=== PATIENT | female | born 1970 | race Caucasian/White ===

== ENCOUNTER 2020-06-27 19:59 | Emergency (ER) | payer SELFPAY ==
[2020-06-27 20:06] VITALS: BP 134/82; PULSE 84; RESP 18; TEMP 36.7; O2SAT 98; BMI 25.4
[2020-06-27 20:29] VITALS: BP 118/80; PULSE 89; RESP 16; O2SAT 97
--- NOTE | 2020-06-27 20:33 | W.ED.FEMALGU ---
HPI - Female Genitourinary General: Chief complaint: Vaginal Bleeding Stated complaint: vaginal bleeding Time Seen by Provider: 06/27/20 20:18 History of Present Illness: HPI Narrative: Patient is a 50-year-old female comes to the ED with vaginal bleeding. Patient has a past medical history of anemia due to iron deficiency. Patient says she started having heavy vaginal bleeding approximately 3 months ago. 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 She has had a Pap smear recently which was normal and also had an ultrasound done approximately 3 weeks ago which also was read as normal. Patient says she has been having normal consistent periods up until 3 months ago when she started having heavier. She said she usually has bleeding for almost 3 weeks and then has a week of no bleeding. She says after the week of no bleeding she starts having spotting and begins another round of heavy bleeding again for approximately 3 weeks. She says the cycle has been going on for the last 3 months. Today patient is having some nausea and pelvic pain and cramping. She rates the pain about a 10 out of 10. Past 4 days her vaginal bleeding has gotten heavier. She describes passing some clots as well. Associated symptoms: Reports nausea; Deny abdominal pain or headache(s) Date of Last Menstrual Period: 06/27/20 Review of Systems Const: Denies: fever(s), chills or fatigue Eyes: Denies: change in vision or eye discomfort ENMT: Denies: throat pain, odynophagia, nasal discharge or nasal congestion Card: Denies: chest pain, palpitations, edema, swelling of feet/ankles, dyspnea on exertion or orthopnea Resp: Denies: dyspnea, productive cough or non-productive cough GI: Reports: nausea; Denies: abdominal pain, vomiting, diarrhea, constipation or hematochezia : Reports: vaginal bleeding, irregular period, change in menstrual flow and pelvic pain (cramping); Denies: flank pain, dysuria or hematuria Musc: Denies: neck pain, back pain or extremity swelling Skin/Breast: Denies: rash or new lesions Neuro: Denies: headache(s), numbness in extremities or weakness in extremities [facility] ED Female Reproductive History: Date of last menstrual period: 06/27/20 Physical Exam Const: COMMON NORMALS: no acute distress, patient oriented x3, healthy appearing and alert GENERAL APPEARANCE: cooperative and comfortable HENMT: COMMON NORMALS: normocephalic HEAD & SCALP: normocephalic MOUTH: Normal oral and palatal mucosa present THROAT: posterior oropharynx normal and uvula midline Eye: COMMON NORMALS: Equal, round and reactive pupils present PUPIL: Yes Equal, round and reactive pupils present Neck/C-Spine: COMMON NORMALS: supple GENERAL: Yes normal visual inspection Resp: COMMON NORMALS: normal respiratory effort, No retractions, No use of accessory muscles and clear to auscultation bilaterally AUSCULTATION: clear to auscultation bilaterally Cardio: COMMON NORMALS: regular rate, regular rhythm, S1 normal heart sound present, S2 normal heart sound present, No gallops present (Cardio), No clicks present (Cardio), No murmurs present (Cardio) and Peripheral pulses 2+ throughout RATE: regular rate RHYTHM: regular rhythm HEART SOUNDS: S1 normal heart sound present and S2 normal heart sound present PERIPHERAL PULSES: Peripheral pulses 2+ throughout GI: COMMON NORMALS: Normal to inspection, nondistended, normoactive bowel sounds present, Soft to palpation and no masses PALPATION: Yes Soft to palpation and Yes Tenderness to palpation present (GI) Details: other (Mild lower pelvic pain upon palpation.) : COMMON NORMALS: Yes no CVA tenderness BLADDER/KIDNEY EXAM: Yes no CVA tenderness Back/Pelvis: COMMON NORMALS: no CVA tenderness Extremity: COMMON NORMALS: normal to inspection and no pedal edema Neuro: COMMON NORMALS: patient oriented x3 and moves all extremities SENSORIUM/ORIENTATION: Yes alert Skin: COMMON NORMALS: no rashes or lesions noted GENERAL SKIN EXAM: no rashes or lesions noted and dry skin Course Reevaluation(s): Reevaluation #1: After IV fluids, Zofran and Dilaudid for pain patient pain greatly improved. Patient is ready to be discharged. Vital Signs: Vital signs: Vital Signs Temperature 98.1 F 06/27/20 20:06 Pulse Rate 70 06/27/20 22:00 Respiratory Rate 16 06/27/20 22:36 Blood Pressure 101/66 06/27/20 22:00 Pulse Oximetry 97 06/27/20 22:36 MDM - Female MDM Narrative: Medical decision making narrative: Patient is a 50-year-old female who comes to the ED with vaginal bleeding and lower abdomen/pelvic pain and cramping. Symptoms started approximately 3 months ago when she is seen her research quality assurance analyst doctor about the vaginal bleeding and a Pap smear has been performed that was normal and an ultrasound was performed approximately a month ago with no acute findings as well. Physical exam?showed some lower abdominal pelvic pain bilaterally. Patient appears in no acute distress and does not appear ill. Hemoglobin 10.5, but patient has a history of anemia.. Rest of CBC, CMP were unremarkable. hCG negative. Ultrasound of the pelvis showed an open cervix, enlarged uterus and normal ovaries. Minimal free fluid seen in the pelvis. No significant endometrial thickening seen. Patient was given IV fluids Zofran and pain medications while here in the ED and her pain did improve. Patient has a follow-up appointment with her OB doctor in the next week. Patient was discharged and told to return to ED if symptoms worsen. Take Tylenol or ibuprofen for pain and drink plenty of fluids. Patient understood and agreed with plan. Lab Data: Attestation: I reviewed the patient's lab results. Labs: Lab Results 06/27/20 06/27/20 06/27/20 Range/Units 20:38 20:38 20:38 WBC 5.4 (4.0-10.0) 10^3/ uL RBC 3.56 L (4.1-5.3) 10^6/u L Hgb 10.5 L (11.5-15.3) g/dL Hct 32.9 L (37.0-47.0) % MCV 92.4 (81-99) fL MCH 29.5 (28.0-34.0) pg MCHC 31.9 (30.0-36.0) g/dL RDW 14.7 (12.1-15.1) % Plt Count 287 (130-400) 10^3/c mm MPV 10.1 (7.4-10.4) fL Neut % (Auto) 49.0 % Lymph % (Auto) 36.8 % Clare % (Auto) 10.8 % Eos % (Auto) 2.1 % Baso % (Auto) 0.9 % Neut # (Auto) 2.63 (1.8-7.7) 10^3/u L Lymph # (Auto) 2.0 (0.8-4.8) 10^3/u L Clare # (Auto) 0.6 (0.2-0.9) 10^3/u L Eos # (Auto) 0.1 (0.0-0.8) 10^3/u L Baso # (Auto) 0.1 (0.0-0.1) 10^3/u L Nucleated RBC % (a uto) 0 % Nucleated RBCs # 0.0 /100WBC Sodium 137 (136-145) mmol/L Potassium 4.2 (3.5-5.1) mmol/L Chloride 103 (98-107) mmol/L Carbon Dioxide 22 (22-29) mmol/L Anion Gap 16.2 (5-19) BUN 16 (6-20) mg/dL Creatinine 0.6 (0.5-0.9) mg/dL GFR Calculation 105.8 (90-130) mL/min Glucose 98 (65-115) mg/dL Calculated Osmolal ity 280 L (285-295) mOsm/k g Calcium 9.1 (8.5-10.5) mg/dL Total Bilirubin 0.2 (0.15-1.2) mg/dL AST 22 (0-32) U/L ALT 14 (0-33) U/L Alkaline Phosphata se 46 (35-105) IU/L Total Protein 6.9 (6.6-8.7) g/dL Albumin 4.3 (3.5-5.2) g/dL Globulin 2.6 (1.3-4.6) g/dL HCG, Qual Negative (Negative) Imaging Data: US OB: Attestation: I personally reviewed and interpreted this imaging study as follows: Radiologist's impression: Ultrasound of the pelvis was performed. Prelim report showed an enlarged uterus with no remarkable endometrial thickening. Cervix was open and not a lot of free fluid in the pelvis was identified. Ovaries are both normal bilaterally. Discharge Plan Discharge Patient Disposition: Home Clinical Impression: Vaginal bleeding, Uterine enlargement Condition: Stable Prescriptions: No Action Vitamin B-12 1,000 mcg Tablet Extended Release 1,000 mcg PO DAILY RF: 0 Vitamin C 1,000 mg Tablet 500 mg PO DAILY RF: 0 vitamin A 8,000 unit Capsule 8,000 unit PO DAILY RF: 0 Vitamin B-1 100 mg Tablet 50 mg PO DAILY RF: 0 Vitamin B-6 100 mg Tablet 50 mg PO BID RF: 0 vitamin B complex Tablet 1 tab PO DAILY RF: 0 Discharge Orders: Discharge Order (Routine); Ordered 06/27/20 Ordered By: Kulwant Slater Referrals: Liset Valdovinos FNP [Primary Care Provider] - Discharge Diet: Regular Discharge Activity: Increase activity as tolerated Patient Instructions: Dysfunctional Uterine Bleeding (ED) Activity Restrictions/Additional Instructions: Follow-up with research quality assurance analyst doctor within the next 7 days for reevaluation. Take ibuprofen or Tylenol for pain. Drink plenty of fluids and stay hydrated. Return to the ER or your medical provider if condition worsens. Please read and understand discharge instructions. If any questions, please ask. Ultrasound findings?uterine enlargement seen. No significant endometrial thickening noted. Cervix was open. Minimal free pelvic fluid. Ovaries were normal. 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
[2020-06-27 20:49] LABS: Basophils # 0.1 10^3/uL (0.0-0.1); Basophils % 0.9 %; Eosinophils # 0.1 10^3/uL (0.0-0.8); Eosinophils % 2.1 %; Hematocrit 32.9 % (37.0-47.0); Hemoglobin 10.5 g/dL (11.5-15.3); Lymphocytes % 36.8 %; Mean Corpuscular HGB Conc 31.9 g/dL (30.0-36.0); Mean Corpuscular Hemoglobin 29.5 pg (28.0-34.0); Mean Corpuscular Volume 92.4 fL (81-99); Mean Platelet Volume 10.1 fL (7.4-10.4); Monocytes # 0.6 10^3/uL (0.2-0.9); Monocytes % 10.8 %; Neutrophils # 2.63 10^3/uL (1.8-7.7); Nucleated Red Blood Cells % 0 %; Platelet Count 287 10^3/cmm (130-400); Red Blood Count 3.56 10^6/uL (4.1-5.3); Red Cell Distribution Width 14.7 % (12.1-15.1); White Blood Count 5.4 10^3/uL (4.0-10.0)
--- NOTE | 2020-06-27 20:53 | US_ITS ---
WS: [id number] EXAM: TRANSVAGINAL PELVIC SONOGRAM DATE OF EXAMINATION: 06/27/2020, 2124 hours COMPARISON: None. HISTORY: 50 years old with vaginal bleeding. FINDINGS: Uterus measures 9.52 cm in length, 5.2 cm in width, and 3.5 in depth. Endometrial complex is hard to determine. Estimated around 5 mm in thickness. There is debris presumably blood within the upper fund us with endometrial lumen in the fundus. The entire endometrial cavity estimated at 9 mm in cross-sec tional diameter. Left ovary measures 2.8 x 1.6 x 2.0 cm. Color-flow and spectral Doppler demonstrates flow within the left ovary. Right ovary measures 2.8 x 2.0 x 2.2 cm. Color-flow and spectral Doppler demonstrates flow within the right ovary. There is trace fluid within the lower uterine segment and upper inner cervical canal. US/US pelvic complete* [id number] OPINION: Fluid and echogenic material within uterine cavity presumably blood products. P resumably the patient is perimenopausal. Correlation with the patient's typical menses cycle recommended. If she has been amenorrheic for a while follow-up im aging will be required in 2-3 months. Normal appearance to both ovaries. No tori e fluid.
[2020-06-27 20:58] VITALS: RESP 16; O2SAT 96
[2020-06-27] MEDS: morphine 4 mg/mL SDV 1 mL IVP (20:58)
[2020-06-27] MEDS: sodium chloride 0.9% 1,000 ML 999 ML IV (20:58)
[2020-06-27] MEDS: ondansetron 2 mg/ML SDV 2 mL 4 MG IVP (20:58)
[2020-06-27 21:08] LABS: Alanine Aminotransferase 14 U/L (0-33); Albumin Level 4.3 g/dL (3.5-5.2); Alkaline Phosphatase 46 IU/L (35-105); Aspartate Amino Transferase 22 U/L (0-32); Blood Urea Nitrogen 16 mg/dL (6-20); Calcium 9.1 mg/dL (8.5-10.5); Carbon Dioxide 22 mmol/L (22-29); Chloride 103 mmol/L (98-107); Globulin 2.6 g/dL (1.3-4.6); Glomerular Filtration Rate 105.8 mL/min (90-130); Glucose 98 mg/dL (65-115); Osmolality Calculated 280 mOsm/kg (285-295); Sodium 137 mmol/L (136-145); Total Bilirubin 0.2 mg/dL (0.15-1.2); Total Protein 6.9 g/dL (6.6-8.7)
[2020-06-27 21:10] LABS: Anion Gap 16.2 (5-19); Potassium 4.2 mmol/L (3.5-5.1)
[2020-06-27 21:42] LABS: HCG, Serum Qual Negative (Negative)
[2020-06-27 22:00] VITALS: BP 101/66; PULSE 70; RESP 16; O2SAT 97
[2020-06-27 22:36] VITALS: RESP 16; O2SAT 97
[2020-06-27] MEDS: HYDROmorphone 1 mg/mL INJ 1 mL IVP (22:36)
== END 2020-06-27 23:04 | disposition home or self-care (01) ==
PROVIDERS: Emergency Medicine; Emergency Provider Physician Assistant; PCP Nurse Practitioner Family
DX: N93.9 Abnormal uterine and vaginal bleeding, unspecified (principal); N85.2 Hypertrophy of uterus
CPT/HCPCS: 12345; 36415; 76856; 80053; 84703; 85025; 96361; 96374; 96375; 99282; 99283; J1170; J2270; J2405; J7030

== ENCOUNTER → 2020-08-04 12:18 | Outpatient (BNVA) | payer MEDICAID, SELFPAY | PROVIDERS: PCP Nurse Practitioner Family; Visit Provider Obstetrics & Gynecology | DX: Z20.828 Contact with and (suspected) exposure to other viral communicable diseases (principal) | CPT/HCPCS: 87635 ==

== ENCOUNTER 2020-08-08 10:36 | Day surgery (SDC) | payer MEDICAID, SELFPAY ==
[2020-08-07 10:23] VITALS: BMI 30.1
[2020-08-08] MEDS: ketorolac 30 mg/mL INJ IVP (11:00)
[2020-08-08 11:05] LABS: OR HCG Qualitative Urine Negative (Negative)
[2020-08-08 11:12] LABS: Basophils # 0.1 10^3/uL (0.0-0.1); Basophils % 1.4 %; Eosinophils # 0.1 10^3/uL (0.0-0.8); Eosinophils % 1.6 %; Hematocrit 38.2 % (37.0-47.0); Hemoglobin 11.6 g/dL (11.5-15.3); Lymphocytes # 1.8 10^3/uL (0.8-4.8); Lymphocytes % 28.8 %; Mean Corpuscular HGB Conc 30.4 g/dL (30.0-36.0); Mean Platelet Volume 10.1 fL (7.4-10.4); Monocytes # 0.6 10^3/uL (0.2-0.9); Monocytes % 9.4 %; Neutrophils # 3.74 10^3/uL (1.8-7.7); Neutrophils % 58.6 %; Nucleated Red Blood Cells % 0 %; Platelet Count 418 10^3/cmm (130-400); Red Blood Count 4.29 10^6/uL (4.1-5.3); Red Cell Distribution Width 14.2 % (12.1-15.1); White Blood Count 6.4 10^3/uL (4.0-10.0)
[2020-08-08] MEDS: sodium chloride 0.9% 1,000 ML 30 ML IV (11:37)
--- NOTE | 2020-08-08 12:06 | ANES.PREANE2 ---
Pre-Anesthetic Assessment Pre-Anesthetic Assessment: Height/Weight: Height 1.65 m Weight 82.1 kg Preop Diagnosis: Menorrhagia, Dysmenorrhea, Anemia Proposed Procedure: Operation Date: 08/08/20 12:00 Proposed Procedures p Hysteroscopy w/ Ablation w/ Novasure 07267 N93.9(Not Applicable) - Taco Amaya MD Familial anesthetic complications: None Last intake: Intake Last Liquid Date 08/08/20 Last Liquid Time 03:00 Last Solid Date 08/07/20 Last Solid Time 17:00 Social: Social History: No alcohol and No tobacco Exam: Pre-Anes Outpt Exam: alert, oriented x 3, clear to auscultation bilaterally and regular rate & rhythm Airway: Cervical ROM: WNL MP: 2 Dentition: False Pulmonary: Pulmonary: Sleep apnea Anesthetic Plan: ASA status: 2 Anesthesia: MAC Risk of > 500 ml blood loss (7ml/kg in children): No PFSH Anesthesia PFSH: Medical History Anemia 05/01/2020: H&H 9.5/27.8, MCV 88.9 06/27/2020: H&H 10.5/32.9, MCV 92.4 Left breast lump Sleep apnea Surgical History H/O right knee surgery Meniscal tear History of ankle surgery Left ankle fracture Family History Father Cancer Prostate Sister Thyroid disorder Social History Smoking and tobacco status: never smoked Alcohol intake: current Alcohol intake frequency: holidays/special occasions only Other details last substance use: Denies drug use Female Reproductive History: Date of last menstrual period: 06/27/20 Data Anesthesia CBC & Chem 7: 08/08/20 11:00 Other Labs: Laboratory Results - last 48 hr 08/08/20 08/08/20 10:38 11:00 WBC 6.4 RBC 4.29 Hgb 11.6 Hct 38.2 MCV 89.0 MCH 27.0 L MCHC 30.4 RDW 14.2 Plt Count 418 H MPV 10.1 Neut % (Auto) 58.6 Lymph % (Auto) 28.8 [place]verse % (Auto) 9.4 Eos % (Auto) 1.6 Baso % (Auto) 1.4 Neut # (Auto) 3.74 Lymph # (Auto) 1.8 [place]verse # (Auto) 0.6 Eos # (Auto) 0.1 Baso # (Auto) 0.1 Nucleated RBC % (auto) 0 Nucleated RBCs # 0.0 Urine HCG, Qual Negative Cardiac Studies: No Data to Display
--- NOTE | 2020-08-08 14:11 | W.PM.OPSUD ---
Surgery/Procedure H&P Update DATE OF PROCEDURE: August 08, 2020 DATE H&P PERFORMED: 08/04/20 H&P UPDATE INFORMATION: I have reviewed H&P completed within last 30 days, I have examined patient prior to procedure, No changes to prior documentation and H&P is in [facility] EMR on date indicated PREOP DIAGNOSIS: Menorrhagia, Dysmenorrhea, Anemia PLANNED PROCEDURE: Operation Date: 08/08/20 12:00 Proposed Procedures p Hysteroscopy w/ Ablation w/ Novasure 12894 N93.9(Not Applicable) - Taco Amaya MD
--- NOTE | 2020-08-08 15:18 | P.OP_ITS ---
Operative Report Date of procedure: August 08, 2020 Pre-op Diagnosis: Menorrhagia, Dysmenorrhea, Anemia Post-op Diagnosis: Menorrhagia, Dysmenorrhea, Anemia, Endometrial polyp Procedure Done: Hysteroscopy with D&C and endometrial ablation with NovaSure, Paracervical block Specimens removed/disposition: Endometrial curettings with polyp Surgeon: Taco Amaya Lead Assistant Manager: None Anesthesia: MAC and Other (Paracervical block) Estimated blood loss (mL): 2 IV fluids (mL): 900 Complications: None Findings: First-degree uterine prolapse. Small endometrial polyp in the left cornual region. No submucosal masses noted. Brief History: Patient is a 50-year-old female 4, para 4 who initially presented to the office as a referral from Dr. Valdovinos due to abnormal uterine bleeding. She reported having problems with heavy bleeding for the last 4 months. Her bleeding started as regular cycles with it lasting up to 3 weeks at a time. It was start with 1 day of spotting with the rest the time being heavy. She reported changing a tampon and a pad several times per hour. She reported large clots with bad cramping present. She had been treated with high-dose estrogen at one point which did not slow the bleeding. She had then been treated with Depo-Provera as well. She was also found to be anemic and was on oral iron. Ultrasound had shown no abnormalities of the uterus. Due to the continued bleeding despite the Depo-Provera, patient is presenting for than surgical treatment in the form of an endometrial ablation. Procedure: The patient was taken to the operating room where IV sedation was started. She was prepped and draped in the usual sterile fashion in the dorsal supine position with legs in Leonard style stirrups. Sequential compression boots had been placed prior to starting the case. Patient had voided just before coming to the operating room. Exam under anesthesia was performed and the patient was noted to have first- degree uterine prolapse. A weighted speculum was placed in the vagina and the cervix was grasped with a single-tooth tenaculum. A paracervical block was performed with a total of 10 mL of 2% lidocaine with epinephrine used. The cervix was serially dilated until a operative hysteroscope could be passed. Crystalloid solution was used as a distention media. The endometrial cavity was inspected and appeared normal except for the presence of a small endometrial p olyp in the left cornual region. Hysteroscope was removed and sharp curettage performed. Moderate amount of tissue obtained. Using the NovaSure sound, endometrial cavity length was measured at 6 cm. The NovaSure device was inserted and device was deployed. The device was moved up and down and left and right until no further with adjustment occurred. Uterine width was measured at 4.4 cm. Settings were entered in the NovaSure machine and wattage was set at 145 [place]. Cavity integrity check was performed and integrity confirmed. Device was then activated. Total treatment time was 55 se conds. Device was removed. The tenaculum was removed and there was minimal bleeding from the tenaculum site. Patient tolerated the procedure well. Sponge and needle counts were correct. DRAINS: None POSTOPERATIVE STATUS: The patient was transferred to the recovery room in satisfactory condition DISPOSITION: Discharge to home when criteria was met. FOLLOWUP APPOINTMENT: Followup appointment had been scheduled on 08/21/2020 in my office. MEDICATIONS: Tramadol 50 mg, 1 to 2 tablets every 6 hours as needed for pain, #10, 0 refills Ibuprofen 800 mg, 1 tablet 3 times a day as needed for pain, #30, 0 refills Patient to resume usual home medications.
[2020-08-08 15:25] VITALS: BP 116/70; PULSE 82; RESP 18; TEMP 36.8; O2SAT 93
[2020-08-08 15:51] VITALS: BP 114/76; PULSE 87; RESP 18; TEMP 36.8; O2SAT 96
--- NOTE | 2020-08-08 15:52 | ANE.PACU2 ---
Inpatient post-anesthesia follow up: Airway intact: Yes Vital signs: Temperature 98.2 F Pulse Rate 82 Respiratory Rate 18 Blood Pressure 116/70 Pulse Oximetry 93 Oxygen Delivery Me thod Room Air Oxygen Flow Rate Fraction of Inspir ed Oxygen Hydration adequate: Yes Nausea and vomiting: No Pain level: 4 Mental status: Baseline
== END 2020-08-08 16:08 | disposition home or self-care (01) ==
PROVIDERS: PCP Nurse Practitioner Family; Visit Provider Obstetrics & Gynecology
PROC: 0U598ZZ Destruction of Uterus, Via Natural or Artificial Opening Endoscopic (ICD-10-PCS; CPT 58563; principal; 2020-08-08 12:00)
DX: N92.0 Excessive and frequent menstruation with regular cycle (principal); N94.6 Dysmenorrhea, unspecified; D64.9 Anemia, unspecified; N84.0 Polyp of corpus uteri
CPT/HCPCS: 58563; 12345; 81025; 84703; 85025; 88305; 96374; J1885; J2250; J2405; J2704; J3010; J7030

== ENCOUNTER 2021-02-07 10:56 | Emergency (ER) | payer SELFPAY ==
[2021-02-07] VITALS (7 sets, daily range): BP systolic 138–152; BP diastolic 87–100; PULSE 59–69; RESP 18–19; TEMP 36.5–36.6; O2SAT 97–100; BMI 31.6
--- NOTE | 2021-02-07 11:27 | XR_ITS ---
WS: [id number] PORTABLE CHEST HISTORY: chest wall pain, right sided COMPARISON: None available. Lungs are clear and well expanded. No pleural effusion or pneumothorax. Cardiac size: Normal. Mediastinum/Aorta: Normal mediastinum. No osseous abnormality seen. XR/XR chest 1V portable [id number] IMPRESSION: Unremarkable portable chest.
--- NOTE | 2021-02-07 11:27 | ECG_ITS ---
[facility] Test Date: 2021-02-07 Pat Name: Digna Prabhakar Department: Room: Gender: Female Grip Wrapper: : 1970 Requested By: Duncan Clemons Order Number: [id number] Jazzy MD: Eugenio Arechiga M.D. Measurements Intervals [place] Rate: 65 P: 31 CT: 170 QRS: 36 QRSD: 93 T: 40 QT: 407 QTc: 425 Interpretive Statements SINUS RHYTHM SEPTAL MYOCARDIAL INFARCTION , PROBABLY OLD [40+ ms Q WAVE IN V1/V2] No previous ECG available for comparison Electronically Signed On 02-07-2021 19:49:31 CDT by Eugenio Arechiga M.D. [email or web address]
--- NOTE | 2021-02-07 11:48 | W.ED.CHESTPA ---
HPI - Chest Pain General: Chief Complaint: Chest Pain Stated Complaint: Rt shoulder/Rt side of chest/Rt side of back pain Time Seen by Provider: 02/07/21 11:20 History of Present Illness: HPI narrative: The patient is a 50-year-old female who comes to the ER complaining of right-sided shoulder, chest and right back pain as well. She says this pain started 2 days ago while she was gardening as she has been doing a lot of raking dirt. She has taken medication at home with little improvement however each day her pain gets worse. It hurts with movement and she says it hurts to take deep breaths. She is very tender to the right chest and shoulder area. No previous history of coronary artery disease. Non-smoker. Onset (ago): day(s) (2) Timing of current episode: constant Onset: during exertion Pain location: right chest Pain radiation: back (Right back) and right shoulder Severity: moderate Quality: sharp Exacerbating factors: movement Context: trauma/injury Associated symptoms: Reports no associated symptoms; Deny abdominal pain, dyspnea or palpitations Review of Systems General: Reports: 10 or more systems reviewed and unremarkable except in HPI and below Const: Denies: fatigue Eyes: Denies: change in vision, blurry vision or eye redness ENMT: Denies: throat pain, swelling of lips/tongue, ear or mastoid pain or nasal congestion Card: Denies: chest pain (right chest wall pain, right shoulder pain), palpitations, irregular heart rhythm, edema, dyspnea on exertion or orthopnea Resp: Denies: dyspnea, productive cough or non-productive cough GI: Denies: abdominal pain, diarrhea or GI cramping : Denies: flank pain, difficulty voiding, urinary frequency or urinary urgency Musc: Denies: neck pain, back pain, extremity pain, joint pain, joint redness, limited range of motion or muscle weakness Skin/Breast: Denies: rash, pruritus, erythema, skin pain or skin tenderness Neuro: Denies: headache(s), numbness in extremities, weakness in extremities, sensory changes, difficulty walking, dizziness, confusion or Slurred speech present Psych: Denies: anxiety or depression Endo: Denies: polyuria All/Imm: Denies: urticaria, throat swelling or tongue swelling PFS ED PFSH: Medical History (Updated 03/31/21 @ 15:14 by Duncan Clemons MD) Anemia 05/01/2020: H&H 9.5/27.8, MCV 88.9 06/27/2020: H&H 10.5/32.9, MCV 92.4 Left breast lump Sleep apnea Surgical History (Updated 08/22/20 @ 15:38 by Taco Amaya MD) H/O right knee surgery Meniscal tear History of ankle surgery Left ankle fracture S/P endometrial ablation (08/08/20) Hysteroscopy, D&C with polypectomy, NovaSure endometrial ablation. Performed by Dr. Amaya at [facility] in [place], [place]. Family History Father Cancer Prostate Sister Thyroid disorder Social History (Updated 08/22/20 @ 15:39 by Taco Amaya MD) Smoking and tobacco status: never smoked Alcohol intake: current Alcohol intake frequency: holidays/special occasions only Other details last substance use: Denies drug use Female Reproductive History: Date of last menstrual period: 06/27/20 Physical Exam Narrative: EXAM NARRATIVE: Right shoulder pain and tenderness worse with movement. Right-sided chest wall pain and tenderness. Also similar pain and tenderness on her right scapular muscular region. Const: COMMON NORMALS: no acute distress, average body habitus, patient oriented x3, no limitations, healthy appearing, alert and well nourished GENERAL APPEARANCE: cooperative, comfortable, well kempt and well developed ORIENTATION/CONSCIOUSNESS: Yes awake, Yes oriented to person, Yes oriented to place and Yes oriented to time HENMT: COMMON NORMALS: normocephalic, external ears normal and Normal external nose present HEAD & SCALP: normal to inspection and normocephalic NOSE: Normal external nose present EXTERNAL EAR: Yes external ears normal MOUTH: Normal oral and palatal mucosa present THROAT: posterior oropharynx normal Eye: COMMON NORMALS: Equal, round and reactive pupils present and EOMs intact bilaterally GENERAL EYE: appearance normal, both eyes and all related structures PUPIL: Yes Equal, round and reactive pupils present Neck/C-Spine: COMMON NORMALS: full ROM, no lymphadenopathy, no meningeal signs and no JVD GENERAL: Yes normal visual inspection Lymph: LYMPHATIC: no lymphadenopathy noted Chest: COMMONS NORMALS: normal inspection of the chest and normal palpation of entire chest wall Resp: COMMON NORMALS: normal respiratory effort, No retractions, No use of accessory muscles, clear to auscultation bilaterally and percussion normal EFFORT & INSPECTION: Yes able to speak in complete sentences AUSCULTATION: clear to auscultation bilaterally PERCUSSION: percussion normal Cardio: COMMON NORMALS: no JVD, regular rate, regular rhythm, S1 normal heart sound present, S2 normal heart sound present and Peripheral pulses 2+ throughout RATE: regular rate RHYTHM: regular rhythm HEART SOUNDS: S1 normal heart sound present and S2 normal heart sound present PERIPHERAL PULSES: Peripheral pulses 2+ throughout GI: COMMON NORMALS: Normal to inspection, nondistended, normoactive bowel sounds present, Soft to palpation, non-tender and no masses INSPECTION: Yes normal to inspection PALPATION: Yes Soft to palpation : COMMON NORMALS: Yes no CVA tenderness BLADDER/KIDNEY EXAM: Yes no CVA tenderness Back/Pelvis: COMMON NORMALS: no CVA tenderness, thoracic and lumbar spine normal to inspection, no thoracic nor lumbar tenderness and thoraco-lumbar ROM normal Extremity: COMMON NORMALS: normal to inspection, full ROM, capillary refill normal, no joint enlargement and no pedal edema NARRATIVE EXTREMITY EXAM: Tenderness to right shoulder musculature reproducing her chief complaint GENERAL: Yes normal exam except as noted Neuro: COMMON NORMALS: patient oriented x3, CN's II-XII intact bilaterally, moves all extremities, no focal motor deficits, no sensory deficits noted and gait normal SENSORIUM/ORIENTATION: Yes alert, Yes oriented to person, Yes oriented to place and Yes oriented to time MENINGEAL SIGNS: Yes no meningeal signs Psych: COMMON NORMALS: mental status grossly normal, Normal thought process present, cooperative, normal affect and speech normal APPEARANCE: Yes well kempt ATTITUDE: Yes calm SPEECH: Yes normal speech THOUGHT PROCESS: Normal thought process present Skin: COMMON NORMALS: no rashes or lesions noted GENERAL SKIN EXAM: no rashes or lesions noted Course Vital Signs: Vital signs: Vital Signs Temperature 97.9 F 02/07/21 15:48 Pulse Rate 62 02/07/21 15:48 Respiratory Rate 18 02/07/21 15:48 Blood Pressure 146/91 02/07/21 15:48 Pulse Oximetry 97 02/07/21 15:48 MDM - Chest Pain MDM Narrative: Medical decision making narrative: The patient has noncardiac musculoskeletal chest wall pain on the right side from gardening. Recommended she take her Flexeril and return to the ER with worsening symptoms. Also discussed with her the lung thickening and breast mass. She is familiar with the breast mass and had it biopsied which was noncancerous. She is supposed to have it evaluated again and has an appointment to do so soon. Discussed recommendation of repeat CT in 6 months with the lung thickening and she understands that it could be a cancerous process and that she should discuss it with her primary care doctor this week or next week to determine the best course of action though the image recommends a repeat at 6 months. Lab Data: Labs: Lab Results 02/07/21 02/07/21 02/07/21 Range/Units 11:45 11:45 11:45 WBC 7.9 (4.0-10.0) 10^3/ uL RBC 4.74 (4.1-5.3) 10^6/u L Hgb 14.2 (11.5-15.3) g/dL Hct 44.2 (37.0-47.0) % MCV 93.2 (81-99) fL MCH 30.0 (28.0-34.0) pg MCHC 32.1 (30.0-36.0) g/dL RDW 14.0 (12.1-15.1) % Plt Count 275 (130-400) 10^3/c mm MPV 10.6 H (7.4-10.4) fL Neut % (Auto) 66.1 % Lymph % (Auto) 21.5 % [place] % (Auto) 10.2 % Eos % (Auto) 1.0 % Baso % (Auto) 0.8 % Neut # (Auto) 5.19 (1.8-7.7) 10^3/u L Lymph # (Auto) 1.7 (0.8-4.8) 10^3/u L [place] # (Auto) 0.8 (0.2-0.9) 10^3/u L Eos # (Auto) 0.1 (0.0-0.8) 10^3/u L Baso # (Auto) 0.1 (0.0-0.1) 10^3/u L Nucleated RBC % (a uto) 0 % Nucleated RBCs # 0.0 /100WBC D-Dimer 0.71 H (0-0.59) ug/mIFE U Sodium 137 (136-145) mmol/L Potassium 4.1 (3.5-5.1) mmol/L Chloride 100 (98-107) mmol/L Carbon Dioxide 26 (22-29) mmol/L Anion Gap 15.1 (5-19) BUN 9 (6-20) mg/dL Creatinine 0.4 L (0.5-0.9) mg/dL GFR Calculation 169.0 H (90-130) mL/min Glucose 80 (65-115) mg/dL Calculated Osmolal ity 282 L (285-295) mOsm/k g Calcium 9.1 (8.5-10.5) mg/dL Total Bilirubin 0.5 (0.15-1.2) mg/dL AST 17 (0-32) U/L ALT 11 (0-33) U/L Alkaline Phosphata se 84 (35-105) IU/L Troponin T Baselin e (0-10) ng/L Troponin T 120 Min [place] (0-10) ng/L Delta Troponin T (0-10) ABS# Total Protein 7.5 (6.6-8.7) g/dL Albumin 4.5 (3.5-5.2) g/dL Globulin 3.0 (1.3-4.6) g/dL 02/07/21 02/07/21 Range/Units 11:45 14:08 WBC (4.0-10.0) 10^3/ uL RBC (4.1-5.3) 10^6/u L Hgb (11.5-15.3) g/dL Hct (37.0-47.0) % MCV (81-99) fL MCH (28.0-34.0) pg MCHC (30.0-36.0) g/dL RDW (12.1-15.1) % Plt Count (130-400) 10^3/c mm MPV (7.4-10.4) fL Neut % (Auto) % Lymph % (Auto) % [place] % (Auto) % Eos % (Auto) % Baso % (Auto) % Neut # (Auto) (1.8-7.7) 10^3/u L Lymph # (Auto) (0.8-4.8) 10^3/u L [place] # (Auto) (0.2-0.9) 10^3/u L Eos # (Auto) (0.0-0.8) 10^3/u L Baso # (Auto) (0.0-0.1) 10^3/u L Nucleated RBC % (a uto) % Nucleated RBCs # /100WBC D-Dimer (0-0.59) ug/mIFE U Sodium (136-145) mmol/L Potassium (3.5-5.1) mmol/L Chloride (98-107) mmol/L Carbon Dioxide (22-29) mmol/L Anion Gap (5-19) BUN (6-20) mg/dL Creatinine (0.5-0.9) mg/dL GFR Calculation (90-130) mL/min Glucose (65-115) mg/dL Calculated Osmolal ity (285-295) mOsm/k g Calcium (8.5-10.5) mg/dL Total Bilirubin (0.15-1.2) mg/dL AST (0-32) U/L ALT (0-33) U/L Alkaline Phosphata se (35-105) IU/L Troponin T Baselin e 6 (0-10) ng/L Troponin T 120 Min [place] 6.00 (0-10) ng/L Delta Troponin T 0 (0-10) ABS# Total Protein (6.6-8.7) g/dL Albumin (3.5-5.2) g/dL Globulin (1.3-4.6) g/dL Discharge Plan Discharge Patient Disposition: Home Clinical Impression: Musculoskeletal pain, Breast mass, Lung mass Condition: Stable Prescriptions: New cyclobenzaprine 5 mg tablet 5 mg PO TID PRN (Reason: muscle spasm) Qty: 12 RF: 0 No Action Multi Vitamin 1 tab PO DAILY RF: 0 Discharge Orders: Discharge ED (Routine); Ordered 02/07/21 Ordered By: Duncan Clemons Referrals: Liset Valdovinos FNP [Primary Care Provider] - Discharge Diet: Advance as tolerated Discharge Activity: Resume usual activity Patient Instructions: Musculoskeletal Pain (ED), Opioid Safety Activity Restrictions/Additional Instructions: You likely have musculoskeletal pain from gardening. Please take the muscle relaxer as needed to help with your pain. It may not take it away completely but it should help. Be aware it will make you sleepy. Do not mix this medication with drugs, alcohol, nor operate machinery including cars while taking the medication. Return to the ER with worsening symptoms otherwise follow-up with your primary care physician in a few days. Also we found 2 things we were not looking for on your right upper lung there is a slight thickening. It is recommended that you get a repeat CAT scan in 6 months to further evaluate what this is or if it is nothing. In your left breast it is a 1.5 cm mass noted and it is not further characterized on the CAT scan. It is recommended you get a mammogram to further evaluate this. Please be aware both of these findings could be an early cancerous process and discuss it with your primary care physician in a couple days who can order the mammogram and follow-up the lung finding as well. Return to the ER with worsening symptoms at any time Coding Level of Care Code ED Contribution Solicitor for Mandeep Ceron Exam Comprehensive
[2021-02-07 11:54] LABS: Basophils # 0.1 10^3/uL (0.0-0.1); Basophils % 0.8 %; Eosinophils # 0.1 10^3/uL (0.0-0.8); Hematocrit 44.2 % (37.0-47.0); Hemoglobin 14.2 g/dL (11.5-15.3); Lymphocytes # 1.7 10^3/uL (0.8-4.8); Lymphocytes % 21.5 %; Mean Corpuscular HGB Conc 32.1 g/dL (30.0-36.0); Mean Corpuscular Volume 93.2 fL (81-99); Mean Platelet Volume 10.6 fL (7.4-10.4); Monocytes # 0.8 10^3/uL (0.2-0.9); Monocytes % 10.2 %; Neutrophils # 5.19 10^3/uL (1.8-7.7); Neutrophils % 66.1 %; Nucleated Red Blood Cells % 0 %; Platelet Count 275 10^3/cmm (130-400); Red Blood Count 4.74 10^6/uL (4.1-5.3); White Blood Count 7.9 10^3/uL (4.0-10.0)
[2021-02-07] MEDS: aspirin 81 mg Chew Tablet 324 MG PO (12:00)
[2021-02-07] MEDS: orphenadrine 30 mg/mL Inj 2 mL 60 MG IM (12:00)
[2021-02-07 12:25] LABS: D Dimer 0.71 ug/mIFEU (0-0.59)
[2021-02-07 12:30] LABS: Albumin Level 4.5 g/dL (3.5-5.2); Alkaline Phosphatase 84 IU/L (35-105); Blood Urea Nitrogen 9 mg/dL (6-20); Calcium 9.1 mg/dL (8.5-10.5); Chloride 100 mmol/L (98-107); Sodium 137 mmol/L (136-145); Total Bilirubin 0.5 mg/dL (0.15-1.2); Total Protein 7.5 g/dL (6.6-8.7)
[2021-02-07 12:32] LABS: Troponin(5th) Baseline 6 ng/L (0-10)
--- NOTE | 2021-02-07 12:35 | CT_ITS ---
WS: [id number] CT CHEST ANGIOGRAPHY WITH REFORMATS HISTORY: right chest pain. Elevated d dimer TECHNIQUE: Contiguous axial images are obtained through the chest during arterial injection of intrav enous contrast. Images are reconstructed to evaluate the pulmonary arteries. MIP imaging also reviewe d. All CT scans at [facility] use at least one of these dose optimization techniques: aut omated exposure control; mA and/or kV adjustment per patient size (includes targeted exams where dose is matched to clinical indication); or iterative reconstruction. CONTRAST: Omnipaque 350; 95 mL IV. DLP: 1190.92 mGy.cm COMPARISON: None available. Very good opacification of the pulmonary arteries. No defects or pulmonary emboli. Normal size aorta. Normal size pulmonary artery. Heart is not enlarged. No pericardial or pleural effusions. Focal area of mild pleural thickening at the RIGHT apex of uncertain etiology. This area measures 1.5 cm in [facility]. No mass or pneumonia. No mediastinal or hilar adenopathy. Small hiatal hernia. No adrenal mass. The visualized liver is negative. No osteoblastic or osteolytic bone disease. LEFT breast mass measures 1.[address]/CT angio chest PE protcl [id number] IMPRESSION: 1. No pulmonary embolism. 2. No pneumonia. 3. Nonspecific pleural thickening at the RIGHT apex. Recommend follow-up chest CT in 6 months for reevaluation and documentation of stability. 4. LEFT breast mass measures 1.5 cm. Recommend follow-up diagnostic mammogram which can be performed as an outpatient.
[2021-02-07 12:53] LABS: Alanine Aminotransferase 11 U/L (0-33); Aspartate Amino Transferase 17 U/L (0-32); Potassium 4.1 mmol/L (3.5-5.1)
[2021-02-07 13:12] LABS: Creatinine Clr Calc Pharmacy 182.4132
[2021-02-07 13:13] LABS: Anion Gap 15.1 (5-19); Carbon Dioxide 26 mmol/L (22-29)
[2021-02-07] MEDS: iohexol 350 mg/mL 100 mL Btl IV ×2 (13:17)
[2021-02-07 13:23] LABS: Glucose 80 mg/dL (65-115); Osmolality Calculated 282 mOsm/kg (285-295)
[2021-02-07 14:40] LABS: Troponin 5 2HR Delta 0 ABS# (0-10)
== END 2021-02-07 15:58 | disposition home or self-care (01) ==
PROVIDERS: Emergency Provider Family Medicine; PCP Nurse Practitioner Family
DX: M79.18 Myalgia, other site (principal); N63.0 Unspecified lump in unspecified breast; J98.4 Other disorders of lung
CPT/HCPCS: 71045; 71275; 80053; 84484; 85025; 85378; 93005; 96372; 99284; J2360; Q9967

== ENCOUNTER 2021-09-06 08:43 | Outpatient (CLI) | payer SELFPAY ==
--- NOTE | 2021-09-06 08:50 | MM_ITS ---
WS: [id number] BILATERAL DIGITAL SCREENING MAMMOGRAPHY WITH CAD CLINICAL INFORMATION: SCREENING HISTORY: Screening mammogram. No current complaints. COMPARISON: Multiple outside examinations July 03, 2020, 07/06 2020, and ultrasound July 06, 2020. CTA chest February 07, 2021 TECHNIQUE: Bilateral CC and MLO views. FINDINGS: Scattered fibroglandular densities bilaterally. Ovoid nodule left breast near the areola measuring 1. 7 x 1.1 cm with a few microcalcifications. This was present previously and appears stable compared to the prior mammogram. History of outside benign biopsy in 2019. Right breast is unremarkable and unchanged from previous. Vascular calcification. MM/[place] [id number] IMPRESSION: BI-RADS: 3-Probably Benign FOLLOW UP: See Report Recommend 6 month follow-up left diagnostic mammography and ultrasound to confi rm stability of the left breast lesion that was previously biopsied. 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 Therefore continued surveillance is recommended for 2 t o 3 years.
== END 2021-09-06 08:44 | disposition home or self-care (01) ==
LOC: RADSHAW 08:46
PROVIDERS: PCP Nurse Practitioner Family; Visit Provider Obstetrics & Gynecology
DX: Z12.31 Encounter for screening mammogram for malignant neoplasm of breast (principal)
CPT/HCPCS: 77067

== ENCOUNTER 2021-10-19 09:37 | Emergency (ER) | payer OTHER, SELFPAY ==
[2021-10-19 10:47] VITALS: BP 124/75; PULSE 68; RESP 16; TEMP 37.1; O2SAT 99; BMI 29.6
--- NOTE | 2021-10-19 10:58 | W.ED.CHESTPA ---
HPI - Chest Pain General: Chief Complaint: Chest Pain Stated Complaint: SOB, SEVERE COUGH Time Seen by Provider: 10/19/21 10:58 History of Present Illness: HPI narrative: Ms. Prabhakar is a 51-year-old lady with history of anemia who presents to the emergency department due to shortness of breath and cough. Symptom onset was approximately 2 weeks ago and initially was mild however it worsened. She did feel some improvement and then worsened again over the past few days. Cough is productive and thick sputum. She has shortness of breath which is moderate in intensity and worse with exertion. Additionally she has generalized malaise, chills, nausea, vomiting, and diarrhea. She has mild abdominal cramping. Overall the course of symptoms has worsened. Additionally she has mild generalized chest aching which is worse with cough. She denies sick contacts. She reports history of pneumonia shot, flu shot, and Covid shot. No other specific changes in health, exacerbating, or alleviating factors identified. Review of Systems General: Reports: 10 or more systems reviewed and unremarkable except in HPI and below PFSH ED PFSH: Medical History Anemia 05/01/2020: H&H 9.5/27.8, MCV 88.9 06/27/2020: H&H 10.5/32.9, MCV 92.4 Left breast lump Sleep apnea Surgical History H/O right knee surgery Meniscal tear History of ankle surgery Left ankle fracture S/P endometrial ablation (08/08/20) Hysteroscopy, D&C with polypectomy, NovaSure endometrial ablation. Performed by Dr. Amaya at [facility] in [place], [place]. Family History Father Cancer Prostate Sister Thyroid disorder Social History Smoking and tobacco status: never smoked Second hand smoke exposure: No Smoking risk assessment/counseling performed?: No Alcohol intake: current Alcohol intake frequency: holidays/special occasions only Counseling given: No Counseling given: No Other details last substance use: Denies drug use Lives independently: Yes Marital status: Single History of recent travel: No Current gender identity: Female Female Reproductive History: Date of last menstrual period: 06/27/20 Physical Exam Narrative: EXAM NARRATIVE: GENERAL/CONSTITUTIONAL -mildly ill-appearing. Eyes - PERRL, no conjunctival injection ENMT - Atraumatic external nose and ears. NECK - supple. trachea midline CARDIOVASCULAR - regular rate and rhythm. Normal peripheral perfusion. No peripheral edema RESPIRATORY - productive cough. Coarse breath sounds worse on the right. ABDOMEN/GI - minimal generalized tenderness palpation. No tenderness to percussion or evidence of peritonitis MSK - Extremities without obvious deformity or tenderness to palpation SKIN - Warm, Dry NEURO - alert and appropriately oriented. Moves all extremities equally. Course ED course: - Patient was seen and evaluated by me at bedside - Patient placed on cardiac monitors, IV access obtained - Initial evaluation notable for as noted above - symtpom treatment ordered - Labs notable for leukocytosis. mild dehydration likely on metabolic panel. - Imaging notable for no acute finding - Upon serial reexamination after treatment the patient was improved. Patient did have occasional drop in O2 sat even at rest down to 88 and 89%. Shared decision making regarding likely etiology of symptoms versus CTA. low risk for PE. - Based on patient history, evaluation, labs, and imaging as interpreted the most likely cause of the patient's condition is superimposed bacterial infection after viral illness based on clinical exam and history - The results of ED evaluation were discussed with the patient including prescriptions and/or symptomatic cares (if applicable) including appropriate and responsible use, followup plan, and return precautions. The patient verbalized understanding and felt safe for discharge. - Patient discharged in satisfactory condition. Vital Signs: Vital signs: Vital Signs Temperature 98.8 F 10/19/21 10:47 Pulse Rate 95 10/19/21 14:22 Respiratory Rate 14 10/19/21 14:22 Blood Pressure 110/76 10/19/21 14:22 Pulse Oximetry 95 10/19/21 14:22 MDM - Chest Pain Medical Records: Attestation: I reviewed the patient's medical records. Lab Data: Attestation: I reviewed the patient's lab results. Labs: Lab Results 10/19/21 10/19/21 10/19/21 11:20 11:20 11:20 WBC 17.1 10^3/uL H 10 ^3/uL (4.0-10.0) RBC 4.92 10^6/uL 10^6 /uL (4.1-5.3) Hgb 14.8 g/dL g/dL (11.5-15.3) Hct 44.9 % % (37.0-47.0) MCV 91.3 fl fl (81-99) MCH 30.1 pg pg (28.0-34.0) MCHC 33.0 g/dL g/dL (30.0-36.0) RDW 13.5 % % (12.1-15.1) Plt Count 338 10^3/cmm 10^3 /cmm (130-400) MPV 10.4 fL fL (7.4-10.4) Neut % (Auto) 79.1 % % Lymph % (Auto) 11.3 % % [place] % (Auto) 8.8 % % Eos % (Auto) 0.1 % % Baso % (Auto) 0.3 % % Neut # (Auto) 13.55 10^3/uL H 1 0^3/uL (1.8-7.7) Lymph # (Auto) 1.9 10^3/uL 10^3/ uL (0.8-4.8) [place] # (Auto) 1.5 10^3/uL H 10^ 3/uL (0.2-0.9) Eos # (Auto) 0.0 10^3/uL 10^3/ uL (0.0-0.8) Baso # (Auto) 0.1 10^3/uL 10^3/ uL (0.0-0.1) Nucleated RBC % (a uto) 0 % % Nucleated RBCs # 0.0 /100WBC /100W BC Sodium 135 mmol/L L mmol /L (136-145) Potassium 3.5 mmol/L mmol/L (3.5-5.1) Chloride 96 mmol/L L mmol/ L (98-107) Carbon Dioxide 21 mmol/L L mmol/ L (22-29) Anion Gap 21.5 H (5-19) BUN 8 mg/dL mg/dL (6-20) Creatinine 0.6 mg/dL mg/dL (0.5-0.9) GFR Calculation 105.4 mL/min mL/m in (90-130) Glucose 93 mg/dL mg/dL (65-115) Calculated Osmolal ity 278 mOsm/kg L mOs m/kg (285-295) Calcium 9.1 mg/dL mg/dL (8.5-10.5) Total Bilirubin 0.5 mg/dL mg/dL (0.15-1.2) AST 14 U/L U/L (0-32) ALT 12 U/L U/L (0-33) Alkaline Phosphata se 108 IU/L H IU/L (35-105) Troponin T Baselin e 6 ng/L ng/L (0-10) Troponin T 120 Min [place] Delta Troponin T Total Protein 7.1 g/dL g/dL (6.6-8.7) Albumin 4.6 g/dL g/dL (3.5-5.2) Globulin 2.5 g/dL g/dL (1.3-4.6) Lipase 18 U/L U/L (13-60) SARS-CoV-2 Ag (Rap id) 10/19/21 10/19/21 11:20 13:15 WBC RBC Hgb Hct MCV MCH MCHC RDW Plt Count MPV Neut % (Auto) Lymph % (Auto) [place] % (Auto) Eos % (Auto) Baso % (Auto) Neut # (Auto) Lymph # (Auto) [place] # (Auto) Eos # (Auto) Baso # (Auto) Nucleated RBC % (a uto) Nucleated RBCs # Sodium Potassium Chloride Carbon Dioxide Anion Gap BUN Creatinine GFR Calculation Glucose Calculated Osmolal ity Calcium Total Bilirubin AST ALT Alkaline Phosphata se Troponin T Baselin e Troponin T 120 Min [place] 6.14 ng/L ng/L (0-10) Delta Troponin T 0.14 ABS# ABS# (0-10) Total Protein Albumin Globulin Lipase SARS-CoV-2 Ag (Rap id) Negative (Negative) EKG Data^: EKG 1: Attestation: I personally reviewed and interpreted this EKG as follows: EKG interpretation date: 10/19/21 EKG interpretation time: 13:49 Interpretation: 12 lead shows regular rhythm at rate of 64 MN 151, QRS, 101, QTc 425 Normal axis Interpretation: sinus rhythm. non specific t wave changes EKG 2: Attestation: I personally reviewed and interpreted this EKG as follows: EKG interpretation date: 10/19/21 EKG interpretation time: 11:02 Interpretation: 12 lead shows regular rhythm at rate of 64 MN 161, QRS, 101, QTc 403 Normal axis Interpretation: sinus rhythm. non specific t wave changes Discharge Plan Discharge Patient Disposition: Home Clinical Impression: Chest pain, Pneumonia, Leukocytosis Condition: Stable Prescriptions: No Action ferrous sulfate [Feosol] 325 mg (65 mg iron) tablet 325 mg PO DAILY RF: 0 Multi Vitamin 1 tab PO DAILY RF: 0 Discharge Orders: Discharge ED (Routine); Ordered 10/19/21 Ordered By: Michele Chin Referrals: Liset Valdovinos FNP [Primary Care Provider] - Discharge Diet: Usual diet Discharge Activity: Resume usual activity Patient Instructions: Pneumonia (ED) Activity Restrictions/Additional Instructions: Thank you for visiting the emergency department. You were seen and evaluated for cough, nausea, vomiting. The exact cause of your symptoms is unclear though based on history I believe that you have a secondary bacterial pneumonia on top of viral illness. This will be treated with antibiotics. You will be given antinausea medications, please ensure that you are staying hydrated. Please follow-up with your primary care provider. Return to the emergency department for worsening symptoms or anything else that you are concerned about and feel needs emergency department evaluation. Coding Level of Care Code ED Greeting Card Writer for Mandeep Ceron
--- NOTE | 2021-10-19 11:15 | XR_ITS ---
WS: [id number] PORTABLE CHEST HISTORY: chest pain, sob COMPARISON: 02/07/2021 Lungs are clear and well expanded. No pleural effusion or pneumothorax. Cardiac size: Normal. Mediastinum/Aorta: Normal mediastinum. No osseous abnormality seen. XR/XR chest 1V portable [id number] IMPRESSION: Unremarkable portable chest.
--- NOTE | 2021-10-19 11:20 | ECG_ITS ---
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 Measurements Intervals [place] Rate: 64 P: 72 TX: 161 QRS: 67 QRSD: 101 T: 54 QT: 393 QTc: 408 Interpretive Statements SINUS RHYTHM INCOMPLETE RIGHT BUNDLE BRANCH BLOCK [90+ ms QRS DURATION, TERMINAL R IN V1/V2, 40+ ms S IN I/aVL/V4/V5/V6] Compared to ECG 02/07/2021 11:56:26 Incomplete right bundle-branch block now present Myocardial infarct finding no longer present Electronically Signed On 10-20-2021 7:38:06 CLINICAL COORDINATOR by Edwin Sotomayor M.D. [email or web address]
[2021-10-19 11:32] VITALS: BP 146/68; PULSE 71; RESP 18; O2SAT 100
[2021-10-19 11:38] LABS: Basophils # 0.1 10^3/uL (0.0-0.1); Basophils % 0.3 %; Eosinophils % 0.1 %; Hematocrit 44.9 % (37.0-47.0); Hemoglobin 14.8 g/dL (11.5-15.3); Lymphocytes # 1.9 10^3/uL (0.8-4.8); Lymphocytes % 11.3 %; Mean Corpuscular Hemoglobin 30.1 pg (28.0-34.0); Mean Corpuscular Volume 91.3 fl (81-99); Mean Platelet Volume 10.4 fL (7.4-10.4); Monocytes # 1.5 10^3/uL (0.2-0.9); Monocytes % 8.8 %; Neutrophils # 13.55 10^3/uL (1.8-7.7); Neutrophils % 79.1 %; Nucleated Red Blood Cells % 0 %; Platelet Count 338 10^3/cmm (130-400); Red Blood Count 4.92 10^6/uL (4.1-5.3); Red Cell Distribution Width 13.5 % (12.1-15.1); White Blood Count 17.1 10^3/uL (4.0-10.0)
[2021-10-19] MEDS: acetaminophen 500 mg Tablet 1000 MG PO (11:44)
[2021-10-19] MEDS: sodium chloride 0.9% 500 ML 999 ML IV (11:45)
[2021-10-19] MEDS: ketorolac 30 mg/mL INJ 15 MG IVP (11:47)
[2021-10-19] MEDS: ondansetron 2 mg/ML SDV 2 mL 4 MG IVP (11:48)
[2021-10-19 11:58] LABS: Troponin(5th) Baseline 6 ng/L (0-10)
[2021-10-19 11:59] LABS: SARS Covid-2 Antigen Negative (Negative)
[2021-10-19 12:00] LABS: Alanine Aminotransferase 12 U/L (0-33); Albumin Level 4.6 g/dL (3.5-5.2); Alkaline Phosphatase 108 IU/L (35-105); Anion Gap 21.5 (5-19); Aspartate Amino Transferase 14 U/L (0-32); Blood Urea Nitrogen 8 mg/dL (6-20); Calcium 9.1 mg/dL (8.5-10.5); Carbon Dioxide 21 mmol/L (22-29); Chloride 96 mmol/L (98-107); Globulin 2.5 g/dL (1.3-4.6); Glomerular Filtration Rate 105.4 mL/min (90-130); Glucose 93 mg/dL (65-115); Lipase 18 U/L (13-60); Osmolality Calculated 278 mOsm/kg (285-295); Potassium 3.5 mmol/L (3.5-5.1); Sodium 135 mmol/L (136-145); Total Bilirubin 0.5 mg/dL (0.15-1.2); Total Protein 7.1 g/dL (6.6-8.7)
--- NOTE | 2021-10-19 13:20 | ECG_ITS ---
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 Measurements Intervals [place] Rate: 64 P: 52 ID: [id number] QRS: 37 QRSD: 102 T: 9 QT: 415 QTc: 431 Interpretive Statements SINUS RHYTHM WITH OCCASIONAL SUPRAVENTRICULAR PREMATURE COMPLEXES SEPTAL MYOCARDIAL INFARCTION , PROBABLY OLD [40+ ms Q WAVE IN V1/V2] Compared to ECG 02/07/2021 11:56:26 No significant changes Electronically Signed On 10-20-2021 7:45:35 [employer] by Edwin Sotomayor M.D. [id number]
[2021-10-19 13:43] LABS: Troponin 5 2HR 6.14 ng/L (0-10); Troponin 5 2HR Delta 0.14 ABS# (0-10)
[2021-10-19 13:52] VITALS: O2SAT 96; O2SAT 98
[2021-10-19] MEDS: doxycycline 100 mg Tablet PO (14:15)
[2021-10-19 14:22] VITALS: BP 110/76; PULSE 95; RESP 14; O2SAT 95
== END 2021-10-19 14:24 | disposition home or self-care (01) ==
PROVIDERS: Emergency Provider Emergency Medicine; PCP Nurse Practitioner Family
DX: R07.9 Chest pain, unspecified (principal); J18.9 Pneumonia, unspecified organism; D72.829 Elevated white blood cell count, unspecified; Z20.822 Contact with and (suspected) exposure to COVID-19
CPT/HCPCS: 71045; 80053; 83690; 84484; 85025; 87426; 93005; 96374; 96375; 99284; J1885; J2405; J7040

== ENCOUNTER 2022-03-05 07:57 | Outpatient (CLI) | payer OTHER, SELFPAY ==
--- NOTE | 2022-03-05 | US_ITS ---
DIAGNOSTIC LEFT DIGITAL MAMMOGRAM, 3-D WITH CAD LEFT breast ultrasound, limited. HISTORY: FIBROADENOMA LT BREAST COMPARISON: 09/06/2021, 07/06/2020 and 07/03/2020 Technique: CC, MLO and ML views. Breast composition: There are scattered areas of fibroglandular density. Ovoid 15 mm mass persists just posterior to the nipple in the anterior breast on the CC projection and inferior to the nipple. Not significantly increased in size since 07/03/2020. LEFT breast ultrasound, limited. Hypoechoic solid mass in the LEFT breast at 3:00. Mass measures 1.4 x 0.7 x 1.4 cm and corresponds to the mammographic abnormality. No increase in size since the prior examination of 07/06/2020. MM/[place] [id number] IMPRESSION: BI-RADS: 2-Benign FOLLOW UP: 1 Year Follow-up ROHIT
--- NOTE | 2022-03-05 08:09 | MM_ITS ---
WS: [id number] DIAGNOSTIC LEFT DIGITAL MAMMOGRAM, 3-D WITH CAD LEFT breast ultrasound, limited. HISTORY: FIBROADENOMA LT BREAST COMPARISON: 09/06/2021, 07/06/2020 and 07/03/2020 Technique: CC, MLO and ML views. Breast composition: There are scattered areas of fibroglandular density. Ovoid 15 mm mass persists j ust posterior to the nipple in the anterior breast on the CC projection and inferior to the nipple. N ot significantly increased in size since 07/03/2020. LEFT breast ultrasound, limited. Hypoechoic solid mass in the LEFT breast at 3:00. Mass measures 1.4 x 0.7 x 1.4 cm and corresponds to the mammographic abnormality. No increase in size since the prior e xamination of 07/06/2020. MM/MM tomosynthesis diag [id number] IMPRESSION: BI-RADS: 2-Benign FOLLOW UP: 1 Year Follow-up
== END 2022-03-05 07:58 | disposition home or self-care (01) ==
PROVIDERS: PCP Nurse Practitioner Family; Visit Provider Obstetrics & Gynecology
DX: D24.2 Benign neoplasm of left breast (principal)
CPT/HCPCS: 76642; 77061

== ENCOUNTER 2023-04-14 08:03 | Outpatient (CLI) | payer MEDICAID, SELFPAY ==
--- NOTE | 2023-04-14 08:27 | MM_ITS ---
WS: [id number] SCREENING DIGITAL BREAST TOMOSYNTHESIS MAMMOGRAM WITH CAD HISTORY: SCREENING COMPARISON: 03/05/2022, 09/06/2021 Bilateral CC and MLO with tomosynthesis and synthetic mammography submitted. Computer aided detection analyzed. Breast composition: There are scattered areas of fibroglandular density. Stable fibroadenoma in the c entral LEFT breast. There is a new asymmetry measuring 7 mm in the medial LEFT breast at a middle dep th. Just inferior to the nipple line. May be noted on the lateral projection but not with certainty. Additional imaging necessary. RIGHT breast is negative. MM/[place] [id number] IMPRESSION: BI-RADS: 0-Incomplete: Need additional imaging evaluation FOLLOW UP: Need Additional Imaging LEFT breast: Spot compression views (CC and MLO). True ML. Ultrasound to follow if abnormality persists.
== END 2023-04-14 08:04 | disposition home or self-care (01) ==
PROVIDERS: PCP Nurse Practitioner Family; Visit Provider Nurse Practitioner Family
DX: Z12.31 Encounter for screening mammogram for malignant neoplasm of breast (principal)
CPT/HCPCS: 77063; 77067

== ENCOUNTER 2023-05-19 10:40 | Outpatient (CLI) | payer MEDICAID, SELFPAY ==
--- NOTE | 2023-05-19 10:45 | MM_ITS ---
WS: [id number] ADDITIONAL VIEWS LEFT MAMMOGRAM with tomosynthesis. LEFT BREAST ULTRASOUND HISTORY: ABNORMAL MAMMO COMPARISON: 04/14/2023, 03/05/2022, 09/06/2021 LEFT MAMMOGRAM: Spot compression views and true ML with tomosynthesis and sympathetic mammography. New asymmetry persists measuring 8 mm in the medial LEFT breast near 9:00. LEFT BREAST ULTRASOUND 2-D and color Doppler imaging submitted. No definite corresponding abnormality seen by ultrasound in the LEFT breast towards 9:00. There is a small lipoma which is echogenic measuring 9 x 3 x 7 mm which does correspond in size and location to the mammographic abnormality. Mammographic features do not suggest lipoma. MM/[place] [id number] IMPRESSION: BI-RADS: 3-Probably Benign FOLLOW UP: 6 Month Follow-up Recommend diagnostic LEFT mammogram and possible ultrasound follow-up in 6 noé hs. Reevaluate the asymmetry in the medial LEFT breast seen only by mammography .
== END 2023-05-19 10:41 | disposition home or self-care (01) ==
PROVIDERS: PCP Nurse Practitioner Family; Visit Provider Nurse Practitioner Family
DX: R92.8 Other abnormal and inconclusive findings on diagnostic imaging of breast (principal)
CPT/HCPCS: 76642; 77061; G0279

== ENCOUNTER → 2023-07-03 07:30 | Outpatient (BNVA) | payer MEDICAID, SELFPAY | PROVIDERS: PCP Nurse Practitioner Family; Visit Provider Student in an Organized Health Care Education/Training Program | DX: M18.0 Bilateral primary osteoarthritis of first carpometacarpal joints (principal); G56.03 Carpal tunnel syndrome, bilateral upper limbs | CPT/HCPCS: 73130 ==

== ENCOUNTER 2023-07-30 07:59 | Day surgery (SDC) | payer MEDICAID, SELFPAY ==
[2023-07-29 09:32] VITALS: BMI 27.4
[2023-07-30] VITALS (13 sets, daily range): BP systolic 114–153; BP diastolic 71–99; PULSE 58–69; RESP 14–22; TEMP 36.1–36.6; O2SAT 86–99
--- NOTE | 2023-07-30 | XR_ITS ---
WS: [id number] XR finger RT min 2V [id number] REASON FOR EXAM: OR PIC, right finger, FINDINGS: Removal of the trapezium carpal bone at the base of the thumb. IMPRESSION: Confirmatory image and surgery as above.
--- NOTE | 2023-07-30 09:12 | P.ANESASSM_ITS ---
Pre-Anesthetic Assessment Height/Weight: Height 1.65 m Weight 74.843 kg Temp Pulse Resp BP Pulse Ox O2 Del Method 97.9 F 69 18 126/91 99 Room Air 07/30/23 08:51 07/30/23 08:51 07/30/23 08:51 07/30/23 08:51 07/30/23 08:51 07/30/23 08:51 Preop Diagnosis: Right carpal Tunnel syndrome, right thumb basal joint arthritis Operation Date: 07/30/23 09:45 Proposed Procedures p RIGHT CARPAL TUNNEL RELEASE, RIGHT THUMB BASAL JOINT ARTHROPLASTY 98832,09928,M18.0, G56.23, G56.03(Right) - Gary Powell, DO s RIGHT THUMB BASAL JOINT ARTHROPLASTY(Right) - Gary Nohemy, DO Was Beta Charlotte taken within 24 hours: N/A Was Clonidine taken within 24 hours: N/A Last intake: Intake Last Liquid Date 07/28/23 Last Liquid Time 20:00 Last Solid Date 07/29/23 Last Solid Time 18:00 Social No tobacco Exam alert, oriented x 3, clear to auscultation bilaterally and regular rate & rhythm Airway Submandibular: within normal limits Cervical ROM: within normal limits Mallampati: Class II Dentition: false History/ROS No significant history except as noted and No significant complaints Anesthetic Plan ASA status: 2 Anesthesia: General Risk of > 500 ml blood loss (7ml/kg in children): No Medications/Allergies Home Medications Medication Instructions Recorded Confirmed Last Taken Type Multi Vitamin 1 tab PO DAILY 02/07/21 07/29/23 07/29/23 History ferrous sulfate 325 mg (65 mg 325 mg PO DAILY 07/25/21 07/29/23 07/29/23 History iron) tablet (Feosol) amitriptyline 25 mg tablet 25 mg PO DAILY 12/09/22 07/29/23 07/28/23 History cmc brace #1 ea 12/09/22 07/03/23 Unknown Rx cms brace #1 ea 12/09/22 07/03/23 Unknown Rx diclofenac sodium 75 mg 75 mg PO BID 12/09/22 07/30/23 07/30/23 06:00 History tablet,delayed release Allergies Allergy/AdvReac Type Severity Reaction Status Date / Time ampicillin Allergy ALGY-Swell Verified 09/20/23 08:45 Lip/Tongue/Throat PFSH Anesthesia Medical History Anemia 05/01/2020: H&H 9.5/27.8, MCV 88.9 06/27/2020: H&H 10.5/32.9, MCV 92.4 Arthritis of carpometacarpal (CMC) joint of both thumbs Bilateral carpal tunnel syndrome Cubital tunnel syndrome, bilateral Left breast lump Sleep apnea Surgical History H/O right knee surgery Meniscal tear History of ankle surgery Left ankle fracture S/P endometrial ablation (08/08/20) Hysteroscopy, D&C with polypectomy, NovaSure endometrial ablation. Performed by Dr. Amaya at [facility] in [place], [place]. Family History Father Cancer Prostate Sister Thyroid disorder Social History Smoking and tobacco status: never smoked Second hand smoke exposure: No Smoking risk assessment/counseling performed?: No Alcohol intake: current Alcohol intake frequency: holidays/special occasions only Counseling given: No Substance/Drug Use: never Counseling given: No Other details last substance use: Denies drug use Lives independently: Yes Marital status: Life Partner Current occupational status: employed Do you think of yourself as: Straight/Heterosexual Current gender identity: Female Data Anesthesia Cardiac Studies: No Data to Display
[2023-07-30] MEDS: sodium chloride 0.9% 1,000 ML 30 ML IV (09:20)
[2023-07-30] MEDS: acetaminophen 1,000 MG/100 ML PIGGYBACK 400 MG IV (09:21)
[2023-07-30] MEDS: ketorolac 30 mg/mL INJ IVP (09:21)
[2023-07-30] MEDS: vancomycin 1,000 MG in sodium chloride 0.9% 250 ML 250 MG IV (10:30)
--- NOTE | 2023-07-30 10:30 | W.PM.OPSUD ---
Surgery/Procedure H&P Update DATE OF PROCEDURE: July 30, 2023 DATE H&P PERFORMED: 07/03/23 H&P UPDATE INFORMATION: I have reviewed H&P completed within last 30 days, I have examined patient prior to procedure and No changes to prior documentation CHANGES TO PREVIOUS DOCUMENTATION: Patient has right carpal tunnel syndrome and right thumb basal joint arthritis patient's failed conservative treatment this point time she like to pursue right carpal tunnel release and right thumb basal joint arthroplasty. Patient understands agrees to current plan. Questions answered. PREOP DIAGNOSIS: Right carpal Tunnel syndrome, right thumb basal joint arthritis PRIMARY INDICATION FOR PROCEDURE: Right carpal tunnel syndrome, right thumb basal joint severe arthritis PLANNED PROCEDURE: Operation Date: 07/30/23 09:45 Proposed Procedures p RIGHT CARPAL TUNNEL RELEASE, RIGHT THUMB BASAL JOINT ARTHROPLASTY 14793,39162,M18.0, G56.23, G56.03(Right) - Gary Slater DO s RIGHT THUMB BASAL JOINT ARTHROPLASTY(Right) - Gary Slater DO
[2023-07-30] MEDS: diphenhydrAMINE 50 mg/mL SDV 1mL 25 MG IVP (10:47)
[2023-07-30] MEDS: ROPivacaine 0.5% SDV 30 mL 15 MG INJECTION (12:33)
[2023-07-30] MEDS: lidocaine 2% INJ 20 mL 7 ML INJECTION (12:34)
--- NOTE | 2023-07-30 12:37 | W.PM.BPON ---
Date of Procedure: 07/30/2023 Surgeon: Gary Slater DO Director [employer] Insurance(s): Kulwant Slater PA-C Procedure(s) performed: Right carpal tunnel release Right thumb basal joint arthroplasty Right thumb APL tendon slip transfer Findings of the procedure(s): Right carpal tunnel syndrome, right thumb basilar joint arthritis Estimated blood loss: 15 mL Specimen(s) removed: Excised trapezium Post-operative diagnosis: Right carpal tunnel syndrome, right thumb basal joint arthritis
--- NOTE | 2023-07-30 12:39 | PM.OP ---
Operative Report Date of procedure: July 30, 2023 Surgeon: Gary Slater DO Traffic Rate Clerk: Kulwant Slater PA-C PA was necessary for assistance retraction as well as protection of neurovascular structures as well as to assist with implantation and tendon transfer. Procedure: Preoperative diagnosis: Right carpal tunnel syndrome Right thumb basal joint arthritis Postoperative diagnosis: Same Procedure done: Right thumb?basal?joint arthroplasty Right thumb APL tendon slip transfer Right carpal tunnel release Implants: Arthrex fiber lock suspension implant kit for?basal?joint arthroplasty Surgeon: Gary Slater DO Estimated blood loss: 15mL Tourniquet time: 51min Complications: none Condition: stable Disposition: same day Brief History: Patient's been seen and worked up in the outpatient setting.? Findings consistent with a right thumb?basal?joint severe arthritis and right carpal tunnel syndrome.? This is failed conservative treatment for both diagnoses and elects to proceed with surgical intervention. ? We talked about surgery in detail about the risk benefits complication alternatives to surgical nonsurgical treatment options.? At this point time her persistent pain is causing her significant issues.? She does understand with the?basal?joint arthroplasty potential loss of range of motion as well as strength but ultimately this would provide her with significant pain relief.? Through shared decision making she elects proceed with surgical intervention of right carpal tunnel release and right thumb?basal?joint arthroplasty.? Once again she understands risk benefits complication alternatives to each treatment option understanding risk elects to proceed with surgery. Procedure: Patient seen evaluated in the preoperative holding area.? Consent was signed and reviewed with patient.? Correct extremity marked.? Once cleared by anesthesia patient was taken back to the operative suite.? Underwent anesthesia per the anesthesia department.? Patient was placed in supine position all bony prominences well-padded patient was properly secured to the bed.? Underwent anesthesia for the anesthesia department.? A armboard was placed to the right upper extremity a nonsterile tourniquet applied to the right upper arm.? Once appropriately anesthetized right upper extremity was then prepped and draped in standard orthopedic fashion.? Final timeout performed.? Patient received appropriate preoperative antibiotics. Esmarch was used exsanguinate the right upper extremity and tourniquet was insufflated to 250 mmHg. I then made a standard mini open Right carpal tunnel incision directly over the previous incision site.? This was made in line with the fourth ray starting distally at Casiano's cardinal line extending proximally just distal to the wrist crease.? This was made in patient's palmar crease longitudinally.? Sharp scalpel incision was made through skin.? I then placed a self-retaining retractor and spread longitudinally identified the palmar fascia which was then split.? Next my self-retaining retractor was placed deep and I had direct visualization of the recurrent and scarred transverse carpal ligament.? This was noted to be significantly thickened.? I then utilizing scalpel incised and feathered through the transverse carpal ligament till entered the carpal tunnel.? Once I did this I switched to Littler dissection scissors and completed the carpal tunnel release surgery distally releasing all of the transverse carpal ligament into the palmar fat with care to protect the recurrent branch as well as the superficial palmar arch.? Once the distal release was performed I then switched to have my orthopedic physician assistant placed retraction above the transverse carpal ligament I then under loupe magnification had direct visualization of the transverse carpal ligament. I utilized a nasal speculum for proximal soft tissue retraction with direct visualization the transverse carpal ligament. I utilized dissection scissors curved ulnarly away from the palmar cutaneous branch and protection of this and released the transverse carpal ligament to its entirely proximally into the median antebrachial fascia then I subsequently switched to a [place] and confirmed adequate complete decompression of the carpal tunnel both proximally and distally.? Satisfied with my release and then inspected the contents the carpal tunnel tendons were healthy.? The nerve was had significant adhesions and scar tissue within the carpal tunnel as a result utilizing dissection scissors I subsequently performed a neurolysis of the median nerve for appropriate decompression of the carpal tunnel as well as neurolysis.? Nerve did appear to be healthy but had been compressed an hourglass shape but overall no masses the nerve appeared to have healthy potential for recovery.? Wound was then thoroughly irrigated.? A wet Ray-Siddharth was then placed into the incision and I then proceeded with right thumb?basal?joint arthroplasty. ? I then utilized a 15 blade in standard longitudinal fashion directly over the right thumb?basal?joint .? Sharp scalpel incision was made through skin only.? I then switched to Littler dissection scissors and dissected out the dorsal cutaneous branches which were protected throughout this case.? I then identified the APL and EPB tendons.? I then performed a first dorsal compartment release under direct visualization with loupe magnification.? At this point time I then mobilized the tendons with a blunt wheatie self retractor and went through this interval.? Next I was directly onto the CMC joint dorsal capsule.? I then subsequently utilized my dissection scissors to dissect out the radial artery which was then identified and protected by my orthopedic physician assistant throughout this case with a Kasdan retractor.? Once I identified the radial artery and dorsal branch I then subsequently performed my capsulotomy of the first CMC joint with Horry blade..? I then introduced a [place] into the arthritic space at the first CMC joint.? This was confirmed with mini C arm to be the appropriate bone prior to performing my trapeziectomy.? The trapezium was then shelled out and its entirety with a McClamary elevator with care to protect and not injure any of my remaining carpal bone articular cartilage as well as not to damage the/injure the radial artery as it was protected throughout the case.? This was then removed and identified the FCR within the floor of my incision.? Trapeziectomy was complete and confirmed on mini C arm. At this point time I thoroughly irrigated and removed of all residual bony debris.? A [place] was placed into the STT joint and joint was inspected and this was found to be free of arthritic changes. I then subsequently plan to proceed with utilizing Arthrex fiber lock suspensioplasty kit which was then opened and then subsequently drilled into the second metacarpal base.? Once I confirm my appropriate placement with mini C arm all suture anchor.? Once this was confirmed appropriate placement I then drilled the impacted and deployed the bicortical suture anchor.? This had excellent tension and could lift the arm off of the table with its fixation.? I then subsequently identified the radial aspect of the first metacarpal and at its mid substance on the radial aspect I subsequently drilled tapped and holding the thumb in appropriate adduction with not over distraction keeping it in line with the base of the second and subsequently loaded suturetape under appropriate tension and thumb positioning keeping the thumb in adduction and appropriate length impacted this suture anchor which had excellent fixation and the excess suture was then removed.? This was then confirmed to have excellent axial stability and an appropriate suspensioplasty.? In order to help add with fixation& interposition within the voided space from the trapeziectomy I then identified a slip of the APL which was then harvested proximally and then weaved this through the FCR tendon twice and then tied this onto the APL tendon itself which created a soft tissue interposition as well as added appropriate abduction to the thumb with appropriate thumb position.? This was then secured with 2 horizontal mattress stitches with 4-0 FiberWire.? I then took the excess of the APL tendon and then placed this within the voided space as a interposition.? I then subsequently had the tourniquet deflated.? Hemostasis was satisfactory.? I then took some Gelfoam to add for soft tissue and interposition within the voided space and hemostasis.? I then closed the capsule with Monocryl suture.? Wound bed was once again thoroughly irrigated.? I then closed the incision with deep 3-0 Vicryl and nylon sutures for skin.? Carpal tunnel incision was closed with interrupted nylon suture and hemostasis was satisfactory. Final x-rays with mini C arm were then taken showing stable trapeziectomy with soft tissue and suture anchor interposition.? Thumb had excellent axial stability as well as appropriate positioning.? Patient was then dressed with 4 x 4's ABD Curlex and a thumb spica splint.? With an Ino wrap.? Patient was awakened from anesthesia and taken to PACU in stable condition. Disposition: Patient taken to PACU in stable condition recovering well.? Patient will receive appropriate discharge instructions as well as pain medication postoperatively.? Patient placed in thumb spica splint. Nonweightbearing to operative extremity. Patient will follow therapy protocol with OT hand therapy for?basal?joint arthroplasty.? Patient understands agrees with current plan.? All questions answered.? We will see me in the office in 2 weeks.
--- NOTE | 2023-07-30 12:48 | PM.PACU ---
PACU note Narrative: Patient is a 53-year-old female that just underwent a right carpal tunnel release and right basal joint arthroplasty with APL tendon slip transfer. Patient transferred to PACU in stable condition.? Patient is still somnolescent due to anesthesia.? Unable to do full exam.? Dressing and splint on right arm and hand is dry and intact.? Hand and fingers are warm and well-perfused. Exam: unarousable and vital signs stable Disposition: discharged
--- NOTE | 2023-07-30 18:23 | ANE.PACU2 ---
Inpatient post-anesthesia follow up: Airway intact: Yes Vital signs: Temperature 97.2 F Pulse Rate 59 Respiratory Rate 18 Blood Pressure 146/83 Pulse Oximetry 97 Oxygen Delivery Me thod Room Air Oxygen Flow Rate 2 Fraction of Inspir ed Oxygen Hydration adequate: Yes Nausea and vomiting: No Pain level: 1 Mental status: Baseline
== END 2023-07-30 14:14 | disposition home or self-care (01) ==
PROVIDERS: PCP Nurse Practitioner Family; Visit Provider Student in an Organized Health Care Education/Training Program
PROC: (CPT 64721; principal; 2023-07-30 09:35)
PROC: (CPT 26535; 2023-07-30 09:35)
DX: G56.01 Carpal tunnel syndrome, right upper limb (principal); M13.841 Other specified arthritis, right hand; G47.30 Sleep apnea, unspecified
CPT/HCPCS: 25447; 26480; 64721; 73140; 76000; C1713; J0131; J1200; J1885; J2250; J2405; J2704; J2795; J3010; J3370; J7030; J7050

== ENCOUNTER → 2023-08-14 09:42 | Outpatient (BNVA) | payer MEDICAID, SELFPAY | PROVIDERS: PCP Nurse Practitioner Family; Visit Provider Student in an Organized Health Care Education/Training Program | DX: M18.11 Unilateral primary osteoarthritis of first carpometacarpal joint, right hand; G56.03 Carpal tunnel syndrome, bilateral upper limbs | CPT/HCPCS: 73130 ==

== ENCOUNTER 2023-08-20 14:34 | Outpatient (RCR) | payer MEDICAID, SELFPAY | END 2023-09-09 23:59 | disposition home or self-care (01) | LOC: SOT 14:34 | PROVIDERS: PCP Nurse Practitioner Family; Visit Provider Student in an Organized Health Care Education/Training Program | DX: Z98.890 Other specified postprocedural states (principal) | CPT/HCPCS: 97022; 97110; 97165; 97530 ==

== ENCOUNTER 2023-09-16 13:03 | Outpatient (RCR) | payer MEDICAID, SELFPAY | END 2023-10-09 23:59 | disposition home or self-care (01) | LOC: SOT 13:03 | PROVIDERS: PCP Nurse Practitioner Family; Visit Provider Student in an Organized Health Care Education/Training Program | DX: Z98.890 Other specified postprocedural states (principal) | CPT/HCPCS: 97022; 97110; G0283 ==

== ENCOUNTER 2023-10-10 06:00 | Outpatient (RCR) | payer MEDICAID, SELFPAY | END 2023-11-09 23:59 | disposition home or self-care (01) | LOC: SOT 06:00 | PROVIDERS: PCP Nurse Practitioner Family; Visit Provider Student in an Organized Health Care Education/Training Program | DX: Z98.890 Other specified postprocedural states (principal) | CPT/HCPCS: 97022; 97110 ==

== ENCOUNTER 2023-11-25 13:52 | Outpatient (CLI) | payer MEDICAID, SELFPAY ==
--- NOTE | 2023-11-25 13:58 | MM_ITS ---
WS: [id number] DIAGNOSTIC LEFT DIGITAL TOMOSYNTHESIS MAMMOGRAPHY WITH CAD. LEFT breast ultrasound, limited HISTORY: 6[facility] COMPARISON: 05/19/2023 and 04/14/2023 Technique: CC, MLO and ML views. Spot compression LEFT CC. Breast composition: There are scattered areas of fibroglandular density. The asymmetry persists in th e medial LEFT breast near the nipple line. This is only seen on the CC projection and extends over se veral centimeters suggesting this is benign. Ultrasound will be obtained. The additional asymmetry in the more superior breast has been stable on multiple prior years. LEFT breast ultrasound, limited. Vague hypoechoic area LEFT breast at 10:00, 2 cm from the nipple measures 6 x 6 x 3 mm. This may be n ormal fibroglandular tissue. This does probably correspond to the mammographic abnormality. Also iden tified is a solid mass at 3:00, 1 cm from the nipple which is stable. IMPRESSION: MM/[place] [id number] BI-RADS: 3-Probably Benign FOLLOW UP: 6 Month Follow-up Patient to return in 6 months for annual screening mammogram. Additional imagin g and possible ultrasound can be performed at that time of the LEFT breast asym metry which appears benign.
== END 2023-11-25 13:53 | disposition home or self-care (01) ==
LOC: RAD 13:53
PROVIDERS: PCP Nurse Practitioner Family; Visit Provider Nurse Practitioner Family
DX: R92.8 Other abnormal and inconclusive findings on diagnostic imaging of breast (principal)
CPT/HCPCS: 76642; 77061; G0279

== ENCOUNTER → 2023-12-23 13:39 | Outpatient (BNVA) | payer MEDICAID, SELFPAY | PROVIDERS: PCP Nurse Practitioner Family; Visit Provider Student in an Organized Health Care Education/Training Program | DX: M18.0 Bilateral primary osteoarthritis of first carpometacarpal joints (principal); G56.03 Carpal tunnel syndrome, bilateral upper limbs | CPT/HCPCS: 73130 ==

== ENCOUNTER 2024-02-19 05:37 | Day surgery (SDC) | payer MEDICAID, SELFPAY ==
[2024-02-19] VITALS (10 sets, daily range): BP systolic 127–161; BP diastolic 74–94; PULSE 56–64; RESP 10–18; TEMP 36.1–36.2; O2SAT 95–100
--- NOTE | 2024-02-19 | XR_ITS ---
WS: [id number] 3 views of the left first finger, 02/19/2024 Clinical Data: [facility] PICS Comparison: None. Findings: Dr. Slater operated on the triquetrum and base of the left first metacarpal Impression: Surgery at the base of the left first metacarpal.
[2024-02-19] MEDS: sodium chloride 0.9% 1,000 ML 30 ML IV (06:09)
[2024-02-19] MEDS: scopolamine 1.5 Patch 1 PATCH TRANSDERMA (06:13)
[2024-02-19] MEDS: acetaminophen 1,000 MG/100 ML PIGGYBACK 400 MG IV (06:13)
[2024-02-19] MEDS: ketorolac 30 mg/mL INJ IVP (06:13)
--- NOTE | 2024-02-19 06:51 | P.HP_ITS ---
Same Day Surgery H&P Indication for Procedure/HPI DATE OF PROCEDURE: February 19, 2024 CHIEF COMPLAINT/INDICATIONFOR SURGICAL PROCEDURE: Left thumb basal joint arthritis, left carpal tunnel syndrome PREOP DIAGNOSIS: Left thumb basal joint arthritis, left carpal tunnel syndrome PLANNED PROCEDURE: Operation Date: 02/19/24 07:00 Proposed Procedures p Carpal Tunnel Release(Left) - Gary Slater DO s Finger Joint Arthroplasty Thumb Basal Joint Arthroplasty(Left) - Gary Slater DO Medications/Allergies* Home Medications Medication Instructions Recorded Confirmed Type ferrous sulfate 325 mg (65 mg 325 mg PO DAILY 07/25/21 02/19/24 History iron) tablet (Feosol) amitriptyline 25 mg tablet 25 mg PO DAILY 12/09/22 02/19/24 History albuterol sulfate 90 mcg/actuation 90 inh inhalation DAILY 02/18/24 02/19/24 History aerosol inhaler (Ventolin HFA) cetirizine 10 mg tablet (Zyrtec) 10 mg PO DAILY 02/18/24 02/19/24 History topiramate 25 mg tablet (Topamax) 25 mg PO DAILY PRN headaches 02/18/24 02/18/24 History Allergies/Adverse Reactions Allergy/AdvReac Type Severity Reaction Status Date / Time ampicillin Allergy ALGY-Swell Verified 12/23/23 13:43 Lip/Tongue/Throat Current Medications: Generic Name Dose Route Start Last Admin Trade Name Freq PRN Reason Stop Dose Admin Sodium Chloride 1,000 mls @ 30 mls/hr 02/19/24 05:45 02/19/24 06:09 Sodium Chloride 0.9% IV 30 mls/hr .Q24H LOLITA Administration Pertinent History/Comorbid Conditions* Medical History (Updated 12/13/22 @ 22:01 by Gary Slater DO) Arthritis of carpometacarpal (CMC) joint of both thumbs Cubital tunnel syndrome, bilateral Bilateral carpal tunnel syndrome Anemia 05/01/2020: H&H 9.5/27.8, MCV 88.9 06/27/2020: H&H 10.5/32.9, MCV 92.4 Sleep apnea Left breast lump Surgical History (Updated 08/22/20 @ 15:38 by Taco Amaya MD) S/P endometrial ablation (08/08/20) Hysteroscopy, D&C with polypectomy, NovaSure endometrial ablation. [place] [facility] [place]. History of ankle surgery Left ankle fracture H/O right knee surgery Meniscal tear Family History (Updated 07/14/20 @ 08:34 by Isa Macias LPN) Cancer Father Prostate Thyroid disease Sister Social History Smoking and tobacco/nicotine status: never used tobacco/nicotine Second hand smoke exposure: No Alcohol intake: current Alcohol intake frequency: holidays/special occasions only Substance/Drug Use: never Lives independently: Yes Marital status: Life Partner Current occupational status: employed Do you think of yourself as: Straight/Heterosexual Current gender identity: Female Pertinent Exam Findings alert, oriented x 3, operative site marked and procedure specific exam findings Examination demonstrates tenderness palpation of the left basal joint as well as Tinel's over the carpal tunnel refer to full office note on 12/23/2023 for detailed orthopedic examination: Examination left upper extremity: Examination of the left upper extremity demonstrates negative Spurling's normal range of motion of the shoulder and elbow, negative Tinel's at the shoulder. negative Tinel's at the left cubital tunnel. Patient has positive carpal tunnel signs consistent with positive Phalen's positive Tinel's and positive median nerve compression test at the wrist. Mild thenar weakness but no thenar atrophy noted. No intrinsic atrophy noted. Patient is able to make a fist. She has decreased range of motion of the left thumb with severe tenderness to palpation at the basal joint over the CMC joint with a positive CMC grind test that elicits excruciating pain. Patient has negative Kary's test Recommendations Surgery/Procedure today Other Plans: Plan to proceed to the OR today plan to proceed to the OR today for left carpal tunnel release and left thumb basal joint arthroplasty. Patient understands the ins and outs procedure the risk benefits complication alternatives of surgery a nd through shared decision making to proceed with surgical intervention. All questions answered at this time. Coding Level of Care Code Acute Code for Mandeep Ceron
[2024-02-19] MEDS: clindamycin 900 MG/50 ML PREMIX 100 MG IV (07:08)
--- NOTE | 2024-02-19 07:34 | ANES.PREANE2 ---
Pre-Anesthetic Assessment Height/Weight: Height 1.65 m Weight 54.431 kg Temp Pulse Resp BP Pulse Ox O2 Del Method 97.1 F L 64 16 136/84 98 Room Air 02/19/24 06:02 02/19/24 06:02 02/19/24 06:02 02/19/24 06:02 02/19/24 06:02 02/19/24 06:02 Preop Diagnosis: Left thumb basal joint arthritis, left carpal tunnel syndrome Operation Date: 02/19/24 07:00 Proposed Procedures p Carpal Tunnel Release(Left) - Gary Slater DO s Finger Joint Arthroplasty Thumb Basal Joint Arthroplasty(Left) - Gary Slater DO Familial anesthetic complications: none Was Beta Charlotte taken within 24 hours: N/A Was Clonidine taken within 24 hours: N/A Last intake: Intake Last Liquid Date 02/18/24 Last Liquid Time 20:00 Last Solid Date 02/18/24 Last Solid Time 16:00 Social No alcohol and No tobacco Exam alert, oriented x 3, clear to auscultation bilaterally and regular rate & rhythm Airway Submandibular: within normal limits Cervical ROM: within normal limits Mallampati: Class II Dentition: false Pulmonary Asthma and Sleep Apnea CV/HEM Anemia Musc/skel Osteoarthritis/DJD Anesthetic Plan ASA status: 2 Anesthesia: General and Regional (specify below) (Left interscalcene blk) Medications/Allergies Home Medications Medication Instructions Recorded Confirmed Last Taken Type ferrous sulfate 325 mg (65 mg 325 mg PO DAILY 07/25/21 02/19/24 02/17/24 History iron) tablet (Feosol) amitriptyline 25 mg tablet 25 mg PO DAILY 12/09/22 02/19/24 02/17/24 History cmc brace #1 ea 12/09/22 12/23/23 Unknown Rx cms brace #1 ea 12/09/22 12/23/23 Unknown Rx CUSTOM THUMB SPICA #1 ea 08/14/23 12/23/23 Unknown Rx albuterol sulfate 90 mcg/actuation 90 inh inhalation DAILY 02/18/24 02/19/24 02/17/24 History aerosol inhaler (Ventolin HFA) cetirizine 10 mg tablet (Zyrtec) 10 mg PO DAILY 02/18/24 02/19/24 02/17/24 History topiramate 25 mg tablet (Topamax) 25 mg PO DAILY PRN headaches 02/18/24 02/18/24 Unknown History Allergies Allergy/AdvReac Type Severity Reaction Status Date / Time ampicillin Allergy Mitch Verified 12/23/23 13:43 Lip/Tongue/Throat Current Medications Generic Name Dose Route Start Last Admin Trade Name Freq PRN Reason Stop Dose Admin Sodium Chloride 1,000 mls @ 30 mls/hr 02/19/24 05:45 02/19/24 06:09 Sodium Chloride 0.9% IV 30 mls/hr .Q24H LOLITA Administration PFSH Anesthesia Medical History Arthritis of carpometacarpal (CMC) joint of both thumbs Cubital tunnel syndrome, bilateral Bilateral carpal tunnel syndrome Anemia 05/01/2020: H&H 9.5/27.8, MCV 88.9 06/27/2020: H&H 10.5/32.9, MCV 92.4 Sleep apnea Left breast lump Surgical History S/P endometrial ablation (08/08/20) Hysteroscopy, D&C with polypectomy, NovaSure endometrial ablation. Per[place]. Amaya [place] [facility] [place], [place] History of ankle surgery Left ankle fracture H/O right knee surgery Meniscal tear Family History Father Cancer Prostate Sister Thyroid disease Social History Smoking and tobacco/nicotine status: never used tobacco/nicotine Second hand smoke exposure: No Alcohol intake: current Alcohol intake frequency: holidays/special occasions only Substance/Drug Use: never Lives independently: Yes Marital status: Life Partner Current occupational status: employed Do you think of yourself as: Straight/Heterosexual Current gender identity: Female Data Anesthesia Cardiac Studies: No Data to Display Anesthesia Procedures Nerve Block Nerve Block 1: Main Anesthesia: general anesthesia Time Out Performed: Yes Consent: requested by attending/covering physician, from patient, risks and benefits reviewed and patient agrees to proceed Nerve block location: interscalene (left) Anesthesia monitors applied: pulse oximetry, EKG, BP cuff and oxygen Nerve block position: semi sitting Anesthetic Used: ropivicaine 0.5% Amount of anesthesia used (mL): 30 Ultrasound used to: recognize landmarks and visualize and ID brachial plexus Nerve Stimulator Used?: No Interscalene/Femoral BLK: 2 stimuplex 22 g needle used for position and inplane approach Injection: neg aspiration of heme Patient Tolerated Procedure: well Complications: none
[2024-02-19] MEDS: ROPivacaine 0.5% SDV 30 mL 15 MG INJECTION (07:52)
[2024-02-19] MEDS: lidocaine 2% INJ 20 mL 7 ML INJECTION (07:53)
--- NOTE | 2024-02-19 09:07 | P.BOP_ITS ---
Date of Procedure: 02/19/2024 Surgeon: Gary Slater DO Burial Vault Maker(s): None Procedure(s) performed: Left thumb basal joint arthroplasty Left thumb APL tendon slip transfer Left hand partial trapezoid excision Left carpal tunnel release Findings of the procedure(s): Patient was found to have severe left thumb basal joint arthritis as well as STT joint arthritis as well as left carpal tunnel syndrome underwent procedure as planned with any issues or complications and a thumb spica splint will follow-up in 2-week Estimated blood loss: 10 mL Specimen(s) removed: Trapezium excised as well as partial trapezoid excision per formed Post-operative diagnosis: Left thumb basal joint arthritis, left hand STT joint arthritis, left carpal tunnel
--- NOTE | 2024-02-19 09:08 | PM.OP ---
Operative Report Date of procedure: February 19, 2024 Surgeon: Gary Slater DO Procedure: Preoperative diagnosis: Left carpal tunnel syndrome Left thumb basal joint arthritis Postoperative diagnosis: Same, STT joint arthritis Procedure done: Left thumb basal joint arthroplasty Left thumb APL tendon slip transfer Left hand partial trapezoid excision Left carpal tunnel release Implants: Arthrex fiber lock suspension implant kit for?basal?joint arthroplasty Surgeon: Gary Slater DO Estimated blood loss: 10mL Tourniquet time: 67min Complications: none Condition: stable Disposition: same day Brief History: Patient's been seen and worked up in the outpatient setting.? Findings consistent with a Left thumb?basal?joint severe arthritis and Left carpal tunnel syndrome.? This is failed conservative treatment for both diagnoses and elects to proceed with surgical intervention. ? We talked about surgery in detail about the risk benefits complication alternatives to surgical nonsurgical treatment options.? At this point time her persistent pain is causing her significant issues.? She does understand with the?basal?joint arthroplasty potential loss of range of motion as well as strength but ultimately this would provide her with significant pain relief.? Through shared decision making she elects proceed with surgical intervention of Left carpal tunnel release and Left thumb?basal?joint arthroplasty.? Once again she understands risk benefits complication alternatives to each treatment option understanding risk elects to proceed with surgery. Procedure: Patient seen evaluated in the preoperative holding area.? Consent was signed and reviewed with patient.? Correct extremity marked.? Once cleared by anesthesia patient was taken back to the operative suite.? Underwent anesthesia per the anesthesia department.? Patient was placed in supine position all bony prominences well-padded patient was properly secured to the bed.? Underwent anesthesia for the anesthesia department.? A armboard was placed to the Left upper extremity a nonsterile tourniquet applied to the Left upper arm.? Once appropriately anesthetized Left upper extremity was then prepped and draped in standard orthopedic fashion.? Final timeout performed.? Patient received appropriate preoperative antibiotics. Esmarch was used exsanguinate the Left upper extremity and tourniquet was insufflated to 250 mmHg. I then made a standard mini open Left carpal tunnel incision directly over the previous incision site.? This was made in line with the fourth ray starting distally at Casiano's cardinal line extending proximally just distal to the wrist crease.? This was made in patient's palmar crease longitudinally.? Sharp scalpel incision was made through skin.? I then placed a self-retaining retractor and spread longitudinally identified the palmar fascia which was then split.? Next my self-retaining retractor was placed deep and I had direct visualization of the recurrent and scarred transverse carpal ligament.? This was noted to be significantly thickened.? I then utilizing scalpel incised and feathered through the transverse carpal ligament till entered the carpal tunnel.? Once I did this I switched to Littler dissection scissors and completed the carpal tunnel release surgery distally releasing all of the transverse carpal ligament into the palmar fat with care to protect the recurrent branch as well as the superficial palmar arch.? Once the distal release was performed I then switched to have my assistant manager retail placed retraction above the transverse carpal ligament I then under loupe magnification had direct visualization of the transverse carpal ligament. I utilized a nasal speculum for proximal soft tissue retraction with direct visualization the transverse carpal ligament. I utilized dissection scissors curved ulnarly away from the palmar cutaneous branch and protection of this and released the transverse carpal ligament to its entirely proximally into the median antebrachial fascia then I subsequently switched to a Side Lake and confirmed adequate complete decompression of the carpal tunnel both proximally and distally.? Satisfied with my release and then inspected the contents the carpal tunnel tendons were healthy.? The nerve was had significant adhesions and scar tissue within the carpal tunnel as a result utilizing dissection scissors I subsequently performed a neurolysis of the median nerve for appropriate decompression of the carpal tunnel as well as neurolysis.? Nerve did appear to be healthy but had been compressed an hourglass shape but overall no masses the nerve appeared to have healthy potential for recovery.? Wound was then thoroughly irrigated.? A wet Ray-Siddharth was then placed into the incision and I then proceeded with Left thumb?basal?joint arthroplasty. ? I then utilized a 15 blade in standard longitudinal fashion directly over the Left thumb?basal?joint .? Sharp scalpel incision was made through skin only.? I then switched to Littler dissection scissors and dissected out the dorsal cutaneous branches which were protected throughout this case.? I then identified the APL and EPB tendons.? I then performed a first dorsal compartment release under direct visualization with loupe magnification.? At this point time I then mobilized the tendons with a blunt wheatie self retractor and went through this interval.? Next I was directly onto the CMC joint dorsal capsule.? I then subsequently utilized my dissection scissors to dissect out the radial artery which was then identified and protected by my assistant manager retail throughout this case with a Kasdan retractor.? Once I identified the radial artery and dorsal branch I then subsequently performed my capsulotomy of the first CMC joint with Forsyth blade..? I then introduced a Side Lake into the arthritic space at the first CMC joint.? This was confirmed with mini C arm to be the appropriate bone prior to performing my trapeziectomy.? The trapezium was then shelled out and its entirety with a McClamary elevator with care to protect and not injure any of my remaining carpal bone articular cartilage as well as not to damage the/injure the radial artery as it was protected throughout the case.? This was then removed and identified the FCR within the floor of my incision.? Trapeziectomy was complete and confirmed on mini C arm. At this point time I thoroughly irrigated and removed of all residual bony debris.? A Side Lake was placed into the STT joint and joint was inspected and this was found to to have significant arthritic change with complete loss of cartilage and bone on bone articulation. As result I proceeded with the partial trapezoid excision. I used a small 2 mm osteotome measured roughly 2 mm into the trapezoid and under fluoroscopic imaging performed a standard partial trapezoid excision of roughly a 2 mm wafer of bone this was taken all the way to its entirety from radial to ulnar. A synovial rongeur was used to remove the wafer of bone this was then inspected and found to have no further [id number] articulation subsequently treating patient's STT joint arthritis. I then subsequently plan to proceed with utilizing Arthrex fiber lock suspensioplasty kit which was then opened and then subsequently drilled into the second metacarpal base.? Once I confirm my appropriate placement with mini C arm all suture anchor.? Once this was confirmed appropriate placement I then drilled the impacted and deployed the bicortical suture anchor.? This had excellent tension and could lift the arm off of the table with its fixation.? I then subsequently identified the radial aspect of the first metacarpal and at its mid substance on the radial aspect I subsequently drilled tapped and holding the thumb in appropriate adduction with not over distraction keeping it in line with the base of the second and subsequently loaded suturetape under appropriate tension and thumb positioning keeping the thumb in adduction and appropriate length impacted this suture anchor which had excellent fixation and the excess suture was then removed.? This was then confirmed to have excellent axial stability and an appropriate suspensioplasty.? Thumb was taken through range of motion had excellent axial stability in order to prevent from any abduction impinging on the scaphoid plan was to utilize a slip of APL tendon. This also was used in order to help add with fixation& interposition within the voided space from the trapeziectomy I then identified a slip of the APL which was then harvested proximally and then weaved this through the FCR tendon twice and then tied this onto the APL tendon itself which created a soft tissue interposition as well as added appropriate abduction to the thumb with appropriate thumb position.? This was then secured with 2 horizontal mattress stitches with 4-0 FiberWire.? I then took the excess of the APL tendon and then placed this within the voided space as a interposition.? I then subsequently had the tourniquet deflated.? Hemostasis was satisfactory.? I then took some Gelfoam to add for soft tissue and interposition within the voided space and hemostasis.? Wound bed was once again thoroughly irrigated.? I then closed the incision with deep 3-0 Vicryl and nylon sutures for skin.? Carpal tunnel incision was closed with interrupted nylon suture and hemostasis was satisfactory. Final x-rays with mini C arm were then taken showing stable trapeziectomy with soft tissue and suture anchor interposition.? Thumb had excellent axial stability as well as appropriate positioning.? Patient was then dressed with 4 x 4's ABD Curlex and a thumb spica splint.? With an Ino wrap.? Patient was awakened from anesthesia and taken to PACU in stable condition. Disposition: Patient taken to PACU in stable condition recovering well.? Patient will receive appropriate discharge instructions as well as pain medication postoperatively.? Patient placed in thumb spica splint. Nonweightbearing to operative extremity. Patient will follow therapy protocol with OT hand therapy for?basal?joint arthroplasty.? Patient understands agrees with current plan.? All questions answered.? We will see me in the office in 2 weeks.
[2024-02-19] MEDS: HYDROcodone-acetaminophen 5-325 mg Tablet 1 TAB PO (09:44)
--- NOTE | 2024-02-19 15:04 | ANE.PACU2 ---
Inpatient post-anesthesia follow up: Airway intact: Yes Vital signs: Temperature 97.2 F Pulse Rate 56 Respiratory Rate 16 Blood Pressure 161/94 Pulse Oximetry 99 Oxygen Delivery Me thod Room Air Oxygen Flow Rate Fraction of Inspir ed Oxygen Hydration adequate: Yes Nausea and vomiting: No Pain level: 1 Mental status: Baseline
== END 2024-02-19 10:15 | disposition home or self-care (01) ==
PROVIDERS: PCP Nurse Practitioner Family; Visit Provider Student in an Organized Health Care Education/Training Program
PROC: (CPT 64721; principal; 2024-02-19 07:00)
PROC: (CPT 26535; 2024-02-19 07:00)
PROC: (CPT 25310; 2024-02-19 07:00)
DX: G56.02 Carpal tunnel syndrome, left upper limb (principal); M19.042 Primary osteoarthritis, left hand; G47.30 Sleep apnea, unspecified
CPT/HCPCS: 25310; 25447; 64721; 73140; 76000; C1713; J0131; J1885; J2250; J2704; J2795; J3010; J3490; J7030

== ENCOUNTER 2024-03-23 06:00 | Outpatient (CLI) | payer MEDICAID, SELFPAY | END 2024-03-23 23:59 | disposition home or self-care (01) | LOC: SOT 04-02 09:37 | PROVIDERS: Visit Provider Physician Assistant | DX: Z46.89 Encounter for fitting and adjustment of other specified devices (principal) | CPT/HCPCS: 97760; L3807 ==

== ENCOUNTER → 2024-03-23 15:05 | Outpatient (BNVA) | payer MEDICAID, SELFPAY | PROVIDERS: PCP Nurse Practitioner Family; Visit Provider Physician Assistant | DX: M18.0 Bilateral primary osteoarthritis of first carpometacarpal joints (principal); Z98.890 Other specified postprocedural states | CPT/HCPCS: 73130 ==

== ENCOUNTER 2024-04-06 06:00 | Outpatient (RCR) | payer MEDICAID, SELFPAY | END 2024-04-09 23:59 | disposition home or self-care (01) | LOC: SOT 06:00 | PROVIDERS: Visit Provider Physician Assistant | DX: G56.02 Carpal tunnel syndrome, left upper limb (principal); M18.12 Unilateral primary osteoarthritis of first carpometacarpal joint, left hand | CPT/HCPCS: 97022; 97110; 97165; 97530 ==

== ENCOUNTER 2024-04-10 06:00 | Outpatient (RCR) | payer MEDICAID, SELFPAY | END 2024-05-09 23:59 | disposition home or self-care (01) | LOC: SOT 06:00 | PROVIDERS: Visit Provider Physician Assistant | DX: G56.02 Carpal tunnel syndrome, left upper limb (principal); M18.12 Unilateral primary osteoarthritis of first carpometacarpal joint, left hand | CPT/HCPCS: 97022; 97110 ==

== ENCOUNTER 2024-07-27 14:58 | Outpatient (CLI) | payer MEDICAID, SELFPAY ==
--- NOTE | 2024-07-27 15:01 | MM_ITS ---
WS: [id number] DIAGNOSTIC BILATERAL DIGITAL BREAST TOMOSYNTHESIS MAMMOGRAPHY WITH CAD LEFT breast ultrasound, limited HISTORY: MASS OF LEFT BREAST COMPARISON: 11/25/2023, 05/19/2023, 04/14/2023, 07/03/2020 TECHNIQUE: Bilateral craniocaudad, mediolateral oblique, and mediolateral views are submitted with to mosynthesis and SM. Spot compression LEFT CC and MLO. Computer aided detection utilized. Breast composition: There are scattered areas of fibroglandular density. RIGHT breast is negative. Benign calcifications. No mass or distortion. LEFT breast redemonstrates an irregular asymmetry measuring 10 x 18 mm central to the nipple. This ma ss has been previously described with slight increase in size since 2019 and 2020. LEFT breast ultrasound, limited. Reidentified is the ovoid hypoechoic mass with a few small central echogenic foci at 3:00, 1 cm from the nipple. Mass measures 1.4 x 0.7 x 1.3 cm and is unchanged in size since the most recent exams. No recent increase in size of this mass and previously described as a fibroadenoma. There has been a sl ow increase in size of the mass over several years. There is no biopsy clip within this mass. There a re now a few calcifications within the mass. No abnormality is noted in the LEFT breast at the 10:00 axis. MM/MM diag BI tomosynthesis [id number] IMPRESSION: BI-RADS: 4 - Suspicious Finding - Biopsy Should Be Considered. FOLLOW UP: Biopsy Recommended 1. Slow increase in size of the mass posterior to the LEFT nipple now containi ng a few calcifications. As per history this is a fibroadenoma and may have bee n biopsied in the past. There is no biopsy clip within this mass. No biopsy was performed here for review. With the change in calcifications and slight contin ued increase in size of this mass recommend ultrasound-guided biopsy of the mas s posterior to the nipple. 2. The asymmetry in the medial inferior LEFT breast is not identified by ultra sound and is stable since 2020.
== END 2024-07-27 14:59 | disposition home or self-care (01) ==
LOC: RAD 14:58
PROVIDERS: PCP Nurse Practitioner Family; Visit Provider Nurse Practitioner Family
DX: N63.21 Unspecified lump in the left breast, upper outer quadrant (principal); R92.323 Mammographic fibroglandular density, bilateral breasts; N64.89 Other specified disorders of breast; R92.1 Mammographic calcification found on diagnostic imaging of breast
CPT/HCPCS: 76641; 77062; G0279

== ENCOUNTER → 2024-08-10 15:44 | Outpatient (BNVA) | payer MEDICAID, SELFPAY | PROVIDERS: PCP Nurse Practitioner Family; Visit Provider Student in an Organized Health Care Education/Training Program | DX: M18.0 Bilateral primary osteoarthritis of first carpometacarpal joints (principal) | CPT/HCPCS: 73130 ==

== ENCOUNTER 2024-09-29 14:08 | Outpatient (CLI) | payer MEDICAID, SELFPAY ==
--- NOTE | 2024-09-29 14:10 | US_ITS ---
WS: [id number] ULTRASOUND-GUIDED LEFT BREAST BIOPSY HISTORY: LEFT breast mass. COMPARISON: 07/27/2024, 11/25/2023 Procedure, risks and complications are explained to the patient. Medications are reviewed. Consent is obtained. The mass in the LEFT breast is localized with ultrasound. Mass localizes to 3:00, 1 cm from the nippl e. Skin is cleansed with ChloraPrep and anesthetized with 1% buffered lidocaine. Small dermatome is m christine. Under sterile conditions mass is biopsied with a 14-gauge Achieve needle. Multiple core biopsies are performed. Material placed in formalin and sent to pathology for review. No complications encoun tered. Breast tissue marker (Bard ultrasound enhanced ribbon): Single. Patient left the radiology suite with no complications. Patient is instructed to return to [facility] or [facility] with any concerns. US/[place] [id number] IMPRESSION: 1. Uncomplicated core needle biopsy LEFT breast mass at 3:00. 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 N o atypia or malignancy. RECOMMENDATION: LEFT breast ultrasound follow-up in 6 months to confirm carolinei ty.
== END 2024-09-29 14:09 | disposition home or self-care (01) ==
LOC: RAD 14:09
PROVIDERS: PCP Nurse Practitioner Family; Visit Provider Nurse Practitioner Family
DX: N60.22 Fibroadenosis of left breast (principal)
CPT/HCPCS: 19083; 88305

== ENCOUNTER 2025-03-29 14:52 | Outpatient (CLI) | payer MEDICAID, SELFPAY ==
--- NOTE | 2025-03-29 14:56 | US_ITS ---
WS: [id number] ULTRASOUND LEFT BREAST HISTORY: Biopsy-proven fibroadenoma. 6-month follow-up. COMPARISON: 07/27/2024, 09/29/2024 TECHNIQUE: 2-D and Doppler. Fibroadenoma is reidentified in the LEFT breast at 3:00, 1 cm from the nipple. Fibroadenoma measures 1.3 x 0.7 x 1.3 cm with no increase in size. No new or concerning findings that are suspicious. There is a biopsy clip centrally. US/US breast LT limited* [id number] IMPRESSION: BI-RADS: 2- Benign FOLLOW-UP: See Report Return to annual screening mammography. Screening mammography should be schedul ed for July 2025.
== END 2025-03-29 14:53 | disposition home or self-care (01) ==
PROVIDERS: PCP Nurse Practitioner Family; Visit Provider Nurse Practitioner Family
DX: D24.2 Benign neoplasm of left breast (principal)
CPT/HCPCS: 76642